=== PATIENT | male | born 1945 | race Caucasian/White ===

== ENCOUNTER 2016-05-21 11:12 | Inpatient (IN) | payer MEDICARE ==
[~2016-05-21] VITALS: Ht 185.4 cm; Wt 108.1 kg
[2016-05-21] MEDS ORDERED: ONDANSETRON PF 4 MG/2 ML VIAL. IV ONE (11:30)
[2016-05-21] MEDS ORDERED: ACETAMINOPHEN 500 MG TABLET PO ONE (11:30)
--- NOTE | 2016-05-21 11:48 | RAD ---
Indication: Fever and cough for 2 days. Technique: Upright portable chest radiograph was obtained and reviewed without comparison available. Findings: There is minimal atelectasis in the left lung base. The lungs otherwise are clear. Heart is not enlarged and the pulmonary vasculature is not cephalized, allowing for low lung volume. Bony structures are intact. Leads overlie the patient. Impression: Minimal atelectasis in the left lung base.
[2016-05-21 11:49] LABS: BASO % 0 % (0-3); EOS % 0 % (0-3); HEMATOCRIT 39.2 % (39.0-53.0); HEMOGLOBIN 13.5 g/dL (13.0-17.5); LYMPH # 0.5 x10^3/uL (1.0-4.8); LYMPH % 6 % (24-48); MEAN CORPUSCULAR HEMOGLOBIN 30 pg (25-35); MEAN CORPUSCULAR HGB CONC 35 g/dL (31-37); MEAN CORPUSCULAR VOLUME 86 fL (79-100); MONO % 5 % (0-9); NEUT % 89 % (31-73); PLATELET COUNT 143 x10^3/uL (140-400); RED BLOOD COUNT 4.55 x10^6/uL (4.30-5.70); RED CELL DISTRIBUTION WIDTH 13.9 % (11.5-14.5); WHITE BLOOD COUNT 9.9 x10^3/uL (4.0-11.0)
--- NOTE | 2016-05-21 11:56 | EKG ---
[facility] [address] [place] [address] Test Date: 2016-05-21 Test Time: 11:24:04 Pat Name: DEB CALIX Department: Room: Gender: M Mold Stamper: : 1945 Requested By: GT HAGAN Order Number: [id number] Reading MD: Delmy Abreu Measurements Intervals [place] Rate: 110 P: 42 NM: 150 QRS: -32 QRSD: 98 T: 28 QT: 316 QTc: 433 Interpretive Statements SINUS TACHYCARDIA ABNORMAL LEFT AXIS DEVIATION QRS(T) CONTOUR ABNORMALITY CONSIDER INFERIOR MYOCARDIAL DAMAGE RI6.01 Unconfirmed report No previous ECG available for comparison Electronically Signed On 05-21-2016 15:23:11 CDT by Delmy Abreu
[2016-05-21 12:01] LABS: CALCIUM 9.3 mg/dL (8.5-10.1); GFR 33.3; POTASSIUM 3.7 mmol/L (3.5-5.1)
[2016-05-21 12:07] LABS: ALBUMIN 3.1 g/dL (3.4-5.0); ALBUMIN/GLOBULIN RATIO 0.8 (1.0-1.7); TOTAL BILIRUBIN 2.5 mg/dL (0.2-1.0); TOTAL PROTEIN 7.2 g/dL (6.4-8.2)
[2016-05-21 12:14] LABS: OBC FLU VALID
[2016-05-21] MEDS ORDERED: IV NORMAL SALINE 1000ML BAG 1,000 ML IV ONE (12:15)
[2016-05-21] MEDS ORDERED: ASPIRIN 81 MG TAB.CHEW PO ONE (12:30)
[2016-05-21] MEDS ORDERED: CEFTRIAXONE 1GM IVPB FOR OMNI 50 ML IV ONE (12:30)
[2016-05-21 12:33] LABS: % BASOS 1 % (0-3)
[2016-05-21 12:34] LABS: PLT ESTIMATE ADEQUATE (ADEQUATE)
[2016-05-21] MEDS ORDERED: VANCOMYCIN 2 GM in IV NORMAL SALINE 500ML BAG 500 ML IV ONE (13:00)
--- NOTE | 2016-05-21 13:04 | PHYS DOC ---
Past Medical History Past Medical History: No Pertinent History Past Surgical History: No Surgical History Alcohol Use: None Drug Use: None Adult General Chief Complaint Chief Complaint: ALTERED MENTAL STATUS HPI HPI Patient is a 70 year old male who presents with general malaise. Patient reports for the past 2 days he has been feeling sick in general and weak; he has been unable to get out of bed. He reports fever and chills, nausea, head congestion. No discomfort, though than some back soreness that developed while riding in the ambulance. Specifically no chest discomfort, no shortness of breath either. He has not taken anything for symptoms. Per EMS, patient was lying in bed in his own stool on their arrival. Review of Systems Review of Systems Constitutional: Chills, subjective fever Eyes: Denies change in visual acuity or eye pain HENT: Head congestion Respiratory: Denies cough or shortness of breath Cardiovascular: Denies chest pain GI: Nausea. Denies abdominal pain, vomiting, bloody stools or diarrhea : Denies dysuria or hematuria Musculoskeletal: Back soreness after ambulance ride Integument: Denies rash or skin lesions Neurologic: Denies headache, focal weakness or sensory changes Current Medications Current Medications Current Medications Medications (Trade) Dose Ordered Sig/Massiel Start Time Stop Time Status Last Admin Dose Admin Acetaminophen (Tylenol) 1,000 mg 1X ONCE 05/21/16 11:30 05/21/16 11:33 DC 05/21/16 11:54 1,000 MG Aspirin (Children'S Aspirin) 324 mg 1X ONCE 05/21/16 12:30 05/21/16 12:31 DC 05/21/16 12:37 324 MG Ceftriaxone Sodium 50 ml @ 100 mls/hr 1X ONCE 05/21/16 12:30 05/21/16 12:59 DC 05/21/16 12:37 100 MLS/HR Ondansetron HCl (Zofran) 4 mg 1X ONCE 05/21/16 11:30 05/21/16 11:33 DC 05/21/16 11:52 4 MG Sodium Chloride (Iv Sodium Chloride 0.9% 1000ml Bag) 1,000 ml @ 125 mls/hr Q8H 05/21/16 13:04 05/22/16 13:03 05/21/16 15:15 125 MLS/HR Vancomycin HCl 1 each 1 each PRN DAILY PRN 05/21/16 12:30 05/21/16 15:02 1 EACH Vancomycin HCl 2 gm/Sodium Chloride 500 ml @ 250 mls/hr 1X ONCE 05/21/16 13:00 05/21/16 14:59 DC 05/21/16 13:12 250 MLS/HR Allergies Allergies Allergies Coded Allergies Type Severity Reaction Last Updated Verified No Known Drug Allergies 05/21/16 No Physical Exam Physical Exam Constitutional: Well developed, well nourished, no acute distress, non-toxic appearance HENT: Normocephalic, atraumatic, bilateral external ears normal Eyes: EOMI, conjunctiva normal, no discharge Neck: Normal range of motion, no stridor Cardiovascular: Tachycardic, regular rhythm, no murmur Lungs & Thorax: Bilateral breath sounds clear to auscultation Abdomen: Bowel sounds normal, soft, non-distended, no TTP Skin: Clammy, diaphoretic, no erythema, no rash Back: No tenderness, no skin lesion Extremities: No obvious deformity, no edema Neurologic: Alert and oriented X 3, strength and sensation to light touch intact throughout, no gross deficits noted Current Patient Data Vital Signs Vital Signs Date Time Temp Pulse Resp B/P Pulse Ox O2 Delivery O2 Flow Rate FiO2 05/21/16 12:47 102 23 108/60 97 Room Air 05/21/16 11:12 98.9 98.9 Lab Values Laboratory Tests Test 05/21/16 11:30 White Blood Count 9.9x10^3/uL (4.0-11.0) Red Blood Count 4.55x10^6/uL (4.30-5.70) Hemoglobin 13.5g/dL (13.0-17.5) Hematocrit 39.2% (39.0-53.0) Mean Corpuscular Volume 86fL (79-100) Mean Corpuscular Hemoglobin 30pg (25-35) Mean Corpuscular Hemoglobin Concent 35g/dL (31-37) Red Cell Distribution Width 13.9% (11.5-14.5) Platelet Count 143x10^3/uL (140-400) Neutrophils (%) (Auto) 89% (31-73) H Lymphocytes (%) (Auto) 6% (24-48) L Monocytes (%) (Auto) 5% (0-9) Eosinophils (%) (Auto) 0% (0-3) Basophils (%) (Auto) 0% (0-3) Neutrophils # (Auto) 8.8x10^3uL (1.8-7.7) H Lymphocytes # (Auto) 0.5x10^3/uL (1.0-4.8) L Monocytes # (Auto) 0.5x10^3/uL (0.0-1.1) Eosinophils # (Auto) 0.0x10^3/uL (0.0-0.7) Basophils # (Auto) 0.0x10^3/uL (0.0-0.2) Segmented Neutrophils % 80% (35-66) H Band Neutrophils % 12% (0-9) H Lymphocytes % 5% (24-48) L Monocytes % 2% (0-10) Basophils % 1% (0-3) Platelet Estimate Adequate (ADEQUATE) Sodium Level 141mmol/L (136-145) Potassium Level 3.7mmol/L (3.5-5.1) Chloride Level 103mmol/L (98-107) Carbon Dioxide Level 25mmol/L (21-32) Anion Gap 13 (6-14) Blood Urea Nitrogen 33mg/dL (8-26) H Creatinine 2.0mg/dL (0.7-1.3) H Estimated GFR (Cockcroft-Gault) 33.3 BUN/Creatinine Ratio 17 (6-20) Glucose Level 220mg/dL (70-99) H Lactic Acid Level 3.0mmol/L (0.4-2.0) H Calcium Level 9.3mg/dL (8.5-10.1) Total Bilirubin 2.5mg/dL (0.2-1.0) H Aspartate Amino Transferase (AST) 22U/L (15-37) Alanine Aminotransferase (ALT) 32U/L (16-63) Alkaline Phosphatase 61U/L (46-116) Creatine Kinase 122U/L (39-308) Troponin I Quantitative 0.170ng/mL (0.000-0.055) Total Protein 7.2g/dL (6.4-8.2) Albumin 3.1g/dL (3.4-5.0) L Albumin/Globulin Ratio 0.8 (1.0-1.7) L Lipase 80U/L (73-393) Influenza Type A Antigen Negative (NEGATIVE) Influenza Type B Antigen Negative (NEGATIVE) Laboratory Tests 05/21/16 11:30 Laboratory Tests 05/21/16 11:30 EKG EKG EKG (my read): sinus rhythm, rate 110, LAD, intervals wnl, no acute ST/T changes Radiology/Procedures Radiology/Procedures CXR: Impression: Minimal atelectasis in the left lung base. Course & Med Decision Making Course & Med Decision Making Pertinent Labs and Imaging studies reviewed. (See chart for details) Patient is 70-year-old male who presents with malaise, fever. Clammy on exam. Will check EKG, chest x-ray, labs, flu swab to evaluate. IV fluids, nausea medication, acetaminophen ordered for relief of symptoms. EKG and imaging results as above. Labs notable for creatinine 2.0 (no prior to compare), elevated lactic acid, elevated troponin. Dose of aspirin ordered. I discussed case with Dr. Jackson; as for troponin, we will trend this but will not anticoagulate at this time. Repeat lactic acid ordered for after IV fluids given. Discussed results with patient. Discussed with Dr. Odell, will admit under her care for further evaluation and treatment. Dragon Disclaimer Dragon Disclaimer This electronic medical record was generated, in whole or in part, using a voice recognition dictation system. Departure Departure Impression: Primary Impression: Malaise Additional Impressions: Elevated troponin Elevated lactic acid level Disposition: ADMITTED INPATIENT Admitting Physician: Other Condition: GUARDED Referrals: NADIA FITCH MD (PCP) Problem Qualifiers GT HAGAN MD May 21, 2016 13:04
[2016-05-21] MEDS ORDERED: MORPHINE SULFATE 2 MG/ML DISP.SYRIN. IV PRN (13:15)
[2016-05-21] MEDS ORDERED: ONDANSETRON PF 4 MG/2 ML VIAL. IV PRN (13:15)
--- NOTE | 2016-05-21 13:48 | ACF ---
Admission Forms Criteria MENTAL STATUS CHANGE Clinical Indications for Inpatient Care (Place 'X' for any and all applicable criteria): Ongoing inpatient care may be needed for ANY ONE of the following(1)(2)(3)(5)(6) : [X]I. Suspected serious etiology (eg, medical disorder, STEAMER BLOCKER event) of mental status change [ ]II. Danger to self or others not manageable at lower level of care [ ]III. Grave disability (eg, inability to perform self care necessary at lower level of care) [ ]IV. Agitation or inappropriate behavior interfering with care for primary condition (eg, attempting to discontinue lines or drains prematurely, unable to cooperate with respiratory care) [ ]V. Delirium [A] [D][E] as described by ANY ONE of the following(26): [ ]a) Delirium due to alcohol or sedative [F] withdrawal [ ]b) Delirium of uncertain etiology that has not responded to appropriate empiric treatment [ ]c) Delirium that prevents performance of a life-sustaining function (eg, feeding or hydrating oneself) [ ]. General contraindications and/or Inappropriate clinical situations for Observational Care in patients with Mental Status Change, when ANY ONE of the following is required: [ ]a) Prediction of prolongation of LOS based on ANY ONE of the following may be considered as a contraindication for observational care 2, 3, 4, 5, 6, 7, 8, 9, 10, 11 [ ]i) Age > 65 yrs. [ ]ii) Patient arriving by ambulance [ ]iii) Patient with high acuity [ ]iv) Patient requiring vital sign monitoring [ ]v) Patient on IV medication [ ]b) Systolic blood pressures 180mmHg 3,12 [ ]c) Patient with altered mental status including delirium and other alteration of consciousness, (3) [ ]d) Patient whose discharge disposition will be to a fpc home or rehabilitation home should not be managed in Emergency Department Observation Unit. CMS rule requires 3 days hospital stay before such placement.3,13 [ ]e) Patient with failure to thrive due to broad array of etiologies 3,16,17 [ ]f) Inability to ambulate 3,14 Extended stay beyond goal length of stay for the primary condition may be needed until ALL of the following are present(3)(5): [ ]a) Underlying medical etiology of mental status change is absent, or has been established and adequately treated [ ]b) Danger to self or others is absent or manageable at lower level of care. [ ]c) Behavior crisis management, including physical or chemical restraints, is not required or available at lower level of car [ ]d) Substance or alcohol withdrawal is absent or manageable at lower level of care. [ ]e) Behavioral symptoms (eg, agitation, somnolence, inappropriate behavior) are absent, or are manageable at lower level of care. The original [facility] content created by [facility] has been revised. The portions of the content which have been revised are identified through the use of italic text or in bold, and [facility] has neither reviewed nor approved the modified material. All other unmodified content is copyright [facility]. Please see references footnoted in the original [facility] edition 2016 Admission Criteria Met?: Yes CHRIS PINEDA May 21, 2016 13:48
[2016-05-21 14:35] VITALS: BP 111/65
[2016-05-21] MEDS: VANCOMYCIN PER PHARMACY MC PRN (15:02)
[2016-05-21] MEDS: IV NORMAL SALINE 1000ML BAG 1,000 ML IV SCH ×2 (15:15→21:04)
--- NOTE | 2016-05-21 16:21 | CONS ---
DATE OF CONSULTATION: 05/21/2016 REASON FOR CONSULTATION: Elevated troponin. HISTORY OF PRESENT ILLNESS: The patient is a 70-year-old gentleman without any significant past medical history who reports over the course of the last 4 weeks or so, he has had progressive fatigue and myalgias. Ultimately this lead up to severe weakness where he was not able to even get up out of bed and decided to call his son to take him to the hospital. Apparently when EMS arrived, he was in bed and had soiled himself. He reports that he does not remember anything after late Sunday night. The patient denies any chest pain, orthopnea or PND at baseline. 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 He denies any prior cardiovascular history. No prior syncopal events are known. In the ER, upon evaluation, he was noted to have an elevated troponin of 0.170 with an unremarkable EKG. He was admitted to the hospital for further evaluation of renal failure and elevated troponin in the setting of failure to thrive. PAST MEDICAL HISTORY: No known past medical history. PAST SURGICAL HISTORY: None. FAMILY HISTORY: Noncontributory. SOCIAL HISTORY: The patient denies any alcohol, tobacco or illicit drug use. 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 ALLERGIES: No known drug allergies. MEDICATIONS: No current cardiovascular medications. REVIEW OF SYSTEMS: Negative for 10 out of 14 systems reviewed, unless otherwise mentioned above in HPI. PHYSICAL EXAMINATION: VITAL SIGNS: Afebrile, heart rate 93, respiratory rate 16, blood pressure 111/65, pulse ox 96% on room air, he also had transient hypotension with a blood pressure of 80/50 while in the ER. GENERAL: He is alert and oriented, in no acute distress. He appears fatigued. HEAD AND NECK: Unremarkable. HEART: Regular rate and rhythm without any murmurs, rubs or gallops. LUNGS: Clear to auscultation. ABDOMEN: Soft, nontender, nondistended. EXTREMITIES: No clubbing, cyanosis or edema. MUSCULOSKELETAL: No trauma. NEUROLOGIC: No focal deficits. DIAGNOSTIC TESTIN. Chest x-ray is unremarkable. 2. EKG is unremarkable. 3. Troponin 0.170, hemoglobin 13.5, platelets 143, CK is 122, lactate 3.0. IMPRESSION: 1. Failure to thrive. 2. Elevated troponin, likely in the setting of hypotension and possible infectious syndrome, cannot rule out sepsis. 3. Possible seizure given the fact that he does not remember anything that happened from Sunday night and to early Sunday morning. RECOMMENDATIONS: 1. Continue serial enzymes, given the lack of any significant preceding chest pain or EKG changes, this does not appear to be related to cardiac issues. His troponin elevation likely related to his possible sepsis syndrome. 2. We will obtain an echocardiogram. Otherwise, supportive care and further recommendations, pending diagnostics. Thank you for this consultation. MARJORIE HDZ MD DR: MINERVA/celestine JOB#: [id number] / [id number] SHARONA
[2016-05-21 19:59] VITALS: BP 136/72
[2016-05-21] MEDS ORDERED: DEXTROSE 50% 25 GM / 50ML DISP.SYRIN. IV PRN (20:00)
[2016-05-21] MEDS: ACETAMINOPHEN 325 MG TABLET. PO PRN (20:25)
[2016-05-21] MEDS: POTASSIUM CHLORIDE 10 MEQ in IV 1/2 NORMAL SALINE 1,000 ML IV SCH (20:26)
--- NOTE | 2016-05-21 20:31 | HP ---
ADMIT DATE: 05/21/2016 CHIEF COMPLAINT: Generalized malaise, weakness. HISTORY OF PRESENT ILLNESS: The patient is a 70-year-old gentleman in excellent state of health, who presented to the Emergency Room after being found down by his son. His son relates that he found him lying incontinent of stool and urine next to his bed. Apparently, he was initially quite confused. Son helped him up and brought him into the Emergency Room. The patient does not recall any of these details. On further questioning however he relates that he had been feeling poorly over the past month or so. This was waxing and waning, had generalized malaise, fatigue, weakness. After a week, actually he went to his primary care physician thinking he had a sinus infection. He received antibiotics, but symptoms essentially remained. He denies any focal symptoms including chest pain, shortness of breath, palpitations, nausea, vomiting, diarrhea, or any other symptoms. He has never had any problems in the past, consider himself quite healthy. In the Emergency Room, he was found with a slightly elevated troponin at 0.17 as well as mild renal failure and was therefore admitted for further workup. PAST MEDICAL HISTORY: None. PAST SURGICAL HISTORY: None. FAMILY HISTORY: No heart disease, no diabetes, no high blood pressure. SOCIAL HISTORY: Lives by himself. 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 Smoked in his 20s. Denies any alcohol or drug use. ALLERGIES: No known drug allergies. MEDICATIONS: Essentially none. Takes vitamins over the counter. REVIEW OF SYSTEMS: Positive as per HPI. He also relates that he has been incontinent of urine for a couple of days without any dysuria or frequency. PHYSICAL EXAMINATION: VITAL SIGNS: From today show a blood pressure of 111/65, heart rate at 93, respiratory rate at 16. He is afebrile. GENERAL: This is an overweight, 70-year-old, gentleman. Alert and oriented, in no acute distress. HEENT: Shows no scleral icterus. Oral mucosa is pink and moist. NECK: Supple, without any lymphadenopathy. LUNGS: Clear to auscultation bilaterally. CARDIOVASCULAR: Regular rate and rhythm. ABDOMEN: Has positive bowel sounds. Soft, nontender. Organs were not palpable. EXTREMITIES: Show no edema. SKIN: Warm, soft and dry, without any rash. LABORATORY DATA: CBC from today shows a WBC of 9.9, hemoglobin 13.5, platelets of 143. Chemistries with a BUN and creatinine of 33 and 2. Electrolytes within normal limits. Glucose at 220. Total bili is 2.5. IMAGING: Chest x-ray in the Emergency Room shows minimal atelectasis in the left lung base. ASSESSMENT AND PLAN: The patient is a 70-year-old gentleman, who presents with generalized fatigue, weakness, urinary symptoms, and is found with mildly elevated troponin, elevated creatinine as well as glucose. Cardiology already has been consulted for troponin leak without any other signs or symptoms. Serial enzymes will be obtained. He does not carry a diagnosis of diabetes or renal failure. His creatinine is clearly elevated, but with normal electrolytes. This very well may be chronic rather than acute. We will monitor with gentle hydration. Diabetes mellitus is likewise a new diagnosis. We will start with insulin sliding scale. Anticipate need for longacting insulin as well. For his urinary symptoms, I will obtain a UA and culture. Infection versus BPH would be top on the differential diagnosis list. For prophylaxis, we will start him on heparin. Also received a PPI. JERRY BECKER MD DR: DANIELA/nts JOB#: [id number] / [id number] SHARONA
[2016-05-21 20:44] LABS: BILIRUBIN,URINE SMALL (NEG); GLUCOSE,URINE NEGATIVE (NEG); NITRITE,URINE NEGATIVE (NEG); PROTEIN,URINE 100 mg/dL (NEG-TRACE)
[2016-05-21 20:55] LABS: BACTERIA,URINE FEW /HPF (0-FEW); RBC,URINE RARE /HPF (0-2); SQUAMOUS EPITHELIAL CELL,UR FEW /LPF
[2016-05-21 22:09] VITALS: BP 104/61
[2016-05-22] MEDS: ACETAMINOPHEN 325 MG TABLET. PO PRN ×2 (00:44→20:14)
[2016-05-22 03:21] VITALS: BP 108/56
[2016-05-22 05:21] LABS: BASO % 0 % (0-3); EOS % 0 % (0-3); HEMATOCRIT 37.5 % (39.0-53.0); HEMOGLOBIN 12.7 g/dL (13.0-17.5); LYMPH # 0.4 x10^3/uL (1.0-4.8); LYMPH % 6 % (24-48); MEAN CORPUSCULAR HEMOGLOBIN 29 pg (25-35); MEAN CORPUSCULAR HGB CONC 34 g/dL (31-37); MEAN CORPUSCULAR VOLUME 87 fL (79-100); MONO % 5 % (0-9); NEUT % 88 % (31-73); PLATELET COUNT 117 x10^3/uL (140-400); RED BLOOD COUNT 4.32 x10^6/uL (4.30-5.70); RED CELL DISTRIBUTION WIDTH 14.1 % (11.5-14.5); WHITE BLOOD COUNT 6.4 x10^3/uL (4.0-11.0)
[2016-05-22 05:41] LABS: CALCIUM 8.2 mg/dL (8.5-10.1); CREATININE 1.8 mg/dL (0.7-1.3); GFR 37.6; POTASSIUM 4.2 mmol/L (3.5-5.1)
[2016-05-22 05:58] LABS: CHOLESTEROL/HDL RATIO 9.9
[2016-05-22 07:40] VITALS: BP 129/54
[2016-05-22] MEDS: INSULIN ASPART 300 UNITS/3 ML INSULN.PEN SQ SCH ×3 (08:00→16:50)
[2016-05-22] MEDS: VANCOMYCIN PER PHARMACY MC PRN (09:01)
[2016-05-22] MEDS ORDERED: ONDANSETRON PF 4 MG/2 ML VIAL. IV PRN (09:15)
[2016-05-22] MEDS: POTASSIUM CHLORIDE 10 MEQ in IV 1/2 NORMAL SALINE 1,000 ML IV SCH (09:24)
--- NOTE | 2016-05-22 10:19 | RAD ---
CT of the head without contrast, 05/22/2016: History: Fever, headache There is mild cerebral atrophy. The ventricles are within normal limits in size. There is no shift of the midline structures. There is no evidence of acute intracranial hemorrhage or mass effect. IMPRESSION: 1. Mild cerebral atrophy. 2. The CT of the head without contrast is otherwise unremarkable. CT of the paranasal sinuses without contrast, 05/22/2016: Noncontrast scans were obtained with multiplanar reconstructions produced. There is mild mucosal thickening in all of the paranasal sinuses. No free fluid is evident in the sinuses. The ethmoid infundibulum of the ostiomeatal complex on the right is patent. On the left it appears to be narrowed by the mucosal thickening. There is mild deviation of the nasal septum to the left of midline. The visible contents are unremarkable. IMPRESSION: Mild paranasal sinus mucosal thickening without evidence of acute purulent sinusitis. PQRS Compliance Statement: One or more of the following individualized dose reduction techniques were utilized for this examination: 1. Automated exposure control 2. Adjustment of the mA and/or kV according to patient size 3. Use of iterative reconstruction technique
[2016-05-22] MEDS: PIPERACILLIN/TAZOBACTAM 3.375 GM in IV NORMAL SALINE 50ML 50 ML IV SCH ×2 (10:21→17:55)
[2016-05-22] MEDS: PANTOPRAZOLE 40 MG TABLET. PO SCH (10:21)
[2016-05-22 10:47] VITALS: BP 106/49
--- NOTE | 2016-05-22 10:57 | PDOC ---
Infectious Disease Note Vital Sign Vital Signs Vital Signs Date Time Temp Pulse Resp B/P Pulse Ox O2 Delivery O2 Flow Rate FiO2 05/22/16 10:47 98.5 84 18 106/49 97 Room Air 98.5 Labs Lab Laboratory Tests Test 05/21/16 11:30 05/21/16 14:10 05/21/16 17:00 05/21/16 20:31 White Blood Count 9.9x10^3/uL (4.0-11.0) Red Blood Count 4.55x10^6/uL (4.30-5.70) Hemoglobin 13.5g/dL (13.0-17.5) Hematocrit 39.2% (39.0-53.0) Mean Corpuscular Volume 86fL (79-100) Mean Corpuscular Hemoglobin 30pg (25-35) Mean Corpuscular Hemoglobin Concent 35g/dL (31-37) Red Cell Distribution Width 13.9% (11.5-14.5) Platelet Count 143x10^3/uL (140-400) Neutrophils (%) (Auto) 89% (31-73) Lymphocytes (%) (Auto) 6% (24-48) Monocytes (%) (Auto) 5% (0-9) Eosinophils (%) (Auto) 0% (0-3) Basophils (%) (Auto) 0% (0-3) Neutrophils # (Auto) 8.8x10^3uL (1.8-7.7) Lymphocytes # (Auto) 0.5x10^3/uL (1.0-4.8) Monocytes # (Auto) 0.5x10^3/uL (0.0-1.1) Eosinophils # (Auto) 0.0x10^3/uL (0.0-0.7) Basophils # (Auto) 0.0x10^3/uL (0.0-0.2) Segmented Neutrophils % 80% (35-66) Band Neutrophils % 12% (0-9) Lymphocytes % 5% (24-48) Monocytes % 2% (0-10) Basophils % 1% (0-3) Platelet Estimate Adequate (ADEQUATE) Sodium Level 141mmol/L (136-145) Potassium Level 3.7mmol/L (3.5-5.1) Chloride Level 103mmol/L (98-107) Carbon Dioxide Level 25mmol/L (21-32) Anion Gap 13 (6-14) Blood Urea Nitrogen 33mg/dL (8-26) Creatinine 2.0mg/dL (0.7-1.3) Estimated GFR (Cockcroft-Gault) 33.3 BUN/Creatinine Ratio 17 (6-20) Glucose Level 220mg/dL (70-99) Lactic Acid Level 3.0mmol/L (0.4-2.0) 1.4mmol/L (0.4-2.0) 1.5mmol/L (0.4-2.0) Calcium Level 9.3mg/dL (8.5-10.1) Total Bilirubin 2.5mg/dL (0.2-1.0) Aspartate Amino Transf (AST/SGOT) 22U/L (15-37) Alanine Aminotransferase (ALT/SGPT) 32U/L (16-63) Alkaline Phosphatase 61U/L (46-116) Creatine Kinase 122U/L (39-308) Troponin I Quantitative 0.170ng/mL (0.000-0.055) 0.418ng/mL (0.000-0.055) Total Protein 7.2g/dL (6.4-8.2) Albumin 3.1g/dL (3.4-5.0) Albumin/Globulin Ratio 0.8 (1.0-1.7) Lipase 80U/L (73-393) Influenza Type A Antigen Negative (NEGATIVE) Influenza Type B Antigen Negative (NEGATIVE) Urine Collection Type Unknown Urine Color [place] Urine Clarity Cloudy Urine pH 5.0 Urine Specific [facility] 1.025 Urine Protein 100mg/dL (NEG-TRACE) Urine Glucose (UA) Negativemg/dL (NEG) Urine Ketones (Stick) Negativemg/dL (NEG) Urine Blood Large (NEG) Urine Nitrite Negative (NEG) Urine Bilirubin Small (NEG) Urine Urobilinogen Dipstick 1.0mg/dL (0.2 mg/dL) Urine Leukocyte Esterase Small (NEG) Urine RBC Rare/HPF (0-2) Urine WBC 5-10/HPF (0-4) Urine Squamous Epithelial Cells Few/LPF Urine Bacteria Few/HPF (0-FEW) Urine Hyaline Casts Occasional/HPF Urine Mucus Marked/LPF Test 05/21/16 20:34 05/21/16 22:55 05/22/16 04:44 05/22/16 07:55 Glucose (Fingerstick) 129mg/dL (70-99) 151mg/dL (70-99) Troponin I Quantitative 0.542ng/mL (0.000-0.055) White Blood Count 6.4x10^3/uL (4.0-11.0) Red Blood Count 4.32x10^6/uL (4.30-5.70) Hemoglobin 12.7g/dL (13.0-17.5) Hematocrit 37.5% (39.0-53.0) Mean Corpuscular Volume 87fL (79-100) Mean Corpuscular Hemoglobin 29pg (25-35) Mean Corpuscular Hemoglobin Concent 34g/dL (31-37) Red Cell Distribution Width 14.1% (11.5-14.5) Platelet Count 117x10^3/uL (140-400) Neutrophils (%) (Auto) 88% (31-73) Lymphocytes (%) (Auto) 6% (24-48) Monocytes (%) (Auto) 5% (0-9) Eosinophils (%) (Auto) 0% (0-3) Basophils (%) (Auto) 0% (0-3) Neutrophils # (Auto) 5.6x10^3uL (1.8-7.7) Lymphocytes # (Auto) 0.4x10^3/uL (1.0-4.8) Monocytes # (Auto) 0.3x10^3/uL (0.0-1.1) Eosinophils # (Auto) 0.0x10^3/uL (0.0-0.7) Basophils # (Auto) 0.0x10^3/uL (0.0-0.2) Sodium Level 141mmol/L (136-145) Potassium Level 4.2mmol/L (3.5-5.1) Chloride Level 106mmol/L (98-107) Carbon Dioxide Level 25mmol/L (21-32) Anion Gap 10 (6-14) Blood Urea Nitrogen 37mg/dL (8-26) Creatinine 1.8mg/dL (0.7-1.3) Estimated GFR (Cockcroft-Gault) 37.6 Glucose Level 157mg/dL (70-99) Calcium Level 8.2mg/dL (8.5-10.1) Triglycerides Level 150mg/dL (0-150) Cholesterol Level 89mg/dL (0-200) LDL Cholesterol, Calculated 50mg/dL (0-100) VLDL Cholesterol, Calculated 30mg/dL (0-40) HDL Cholesterol 9mg/dL (40-60) Cholesterol/HDL Ratio 9.9 Thyroid Stimulating Hormone (TSH) 0.810uIU/mL (0.358-3.74) Objective Assessment G neg obdulia sepsis Weakness Encephalopathy ARF Troponin leak Plan Plan of Care need ct abd zosyn d/c vanc check culture and adjust CHUN CRUZ MD May 22, 2016 10:57
[2016-05-22] MEDS ORDERED: CEFTRIAXONE SODIUM 1 GM in IV NORMAL SALINE 50ML 50 ML IV SCH (11:00)
[2016-05-22] MEDS ORDERED: CONTRAST GIVEN MC PRN (11:45)
[2016-05-22] MEDS ORDERED: IOHEXOL 240 MG/ML 50ML VIAL. PO ONE (11:45)
--- NOTE | 2016-05-22 11:48 | PDOC ---
MARIAA SMALLS GREETING CARD EDITOR 05/22/16 1148: CARDIO Progress Notes Date and Time Date of Service 05/22/2016 Time of Evaluation 1142 Subjective Subjective: No Chest Pain, No shortness of breath, No Palpitations, No Dizziness Vitals Vitals Vital Signs Date Time Temp Pulse Resp B/P Pulse Ox O2 Delivery O2 Flow Rate FiO2 05/22/16 10:47 98.5 84 18 106/49 97 Room Air 98.5 Weight Weight [ ] Input and Output Intake and Output Intake and Output 05/22/16 07:00 Intake Total 2050 ml Output Total 250 ml Balance 1800 ml Intake Oral 1000 ml IV Total 1050 ml Output Urine Total 250 ml # Voids 2 # Bowel Movements 1 Laboratory Labs Laboratory Tests Test 05/21/16 14:10 05/21/16 17:00 05/21/16 20:31 05/21/16 20:34 Lactic Acid Level 1.4mmol/L (0.4-2.0) 1.5mmol/L (0.4-2.0) Troponin I Quantitative 0.418ng/mL (0.000-0.055) Urine Collection Type Unknown Urine Color Velpen Urine Clarity Cloudy Urine pH 5.0 Urine Specific [place] 1.025 Urine Protein 100mg/dL (NEG-TRACE) Urine Glucose (UA) Negativemg/dL (NEG) Urine Ketones (Stick) Negativemg/dL (NEG) Urine Blood Large (NEG) Urine Nitrite Negative (NEG) Urine Bilirubin Small (NEG) Urine Urobilinogen Dipstick 1.0mg/dL (0.2 mg/dL) Urine Leukocyte Esterase Small (NEG) Urine RBC Rare/HPF (0-2) Urine WBC 5-10/HPF (0-4) Urine Squamous Epithelial Cells Few/LPF Urine Bacteria Few/HPF (0-FEW) Urine Hyaline Casts Occasional/HPF Urine Mucus Marked/LPF Glucose (Fingerstick) 129mg/dL (70-99) Test 05/21/16 22:55 05/22/16 04:44 05/22/16 07:55 05/22/16 11:14 Troponin I Quantitative 0.542ng/mL (0.000-0.055) White Blood Count 6.4x10^3/uL (4.0-11.0) Red Blood Count 4.32x10^6/uL (4.30-5.70) Hemoglobin 12.7g/dL (13.0-17.5) Hematocrit 37.5% (39.0-53.0) Mean Corpuscular Volume 87fL (79-100) Mean Corpuscular Hemoglobin 29pg (25-35) Mean Corpuscular Hemoglobin Concent 34g/dL (31-37) Red Cell Distribution Width 14.1% (11.5-14.5) Platelet Count 117x10^3/uL (140-400) Neutrophils (%) (Auto) 88% (31-73) Lymphocytes (%) (Auto) 6% (24-48) Monocytes (%) (Auto) 5% (0-9) Eosinophils (%) (Auto) 0% (0-3) Basophils (%) (Auto) 0% (0-3) Neutrophils # (Auto) 5.6x10^3uL (1.8-7.7) Lymphocytes # (Auto) 0.4x10^3/uL (1.0-4.8) Monocytes # (Auto) 0.3x10^3/uL (0.0-1.1) Eosinophils # (Auto) 0.0x10^3/uL (0.0-0.7) Basophils # (Auto) 0.0x10^3/uL (0.0-0.2) Sodium Level 141mmol/L (136-145) Potassium Level 4.2mmol/L (3.5-5.1) Chloride Level 106mmol/L (98-107) Carbon Dioxide Level 25mmol/L (21-32) Anion Gap 10 (6-14) Blood Urea Nitrogen 37mg/dL (8-26) Creatinine 1.8mg/dL (0.7-1.3) Estimated GFR (Cockcroft-Gault) 37.6 Glucose Level 157mg/dL (70-99) Calcium Level 8.2mg/dL (8.5-10.1) Triglycerides Level 150mg/dL (0-150) Cholesterol Level 89mg/dL (0-200) LDL Cholesterol, Calculated 50mg/dL (0-100) VLDL Cholesterol, Calculated 30mg/dL (0-40) HDL Cholesterol 9mg/dL (40-60) Cholesterol/HDL Ratio 9.9 Thyroid Stimulating Hormone (TSH) 0.810uIU/mL (0.358-3.74) Glucose (Fingerstick) 151mg/dL (70-99) 182mg/dL (70-99) Microbiology Micro Microbiology 05/21/16 Blood Culture - Final, Complete Physical Exam HEENT: Neck Supple W Full Motion Chest: Symmetric LUNGS: Clear to Auscultation Heart: S1S2, RRR, no murmurs, no jug vein distention, other (tele: SR; no dysrhythmias on tele) Extremities: No Edema Neurology: alert, oriented, follow commands Assessment Assessment 1. septic 2/ BC + - GNR febrile this a.m. per ID 2. Elevated troponin likely due to #1 echo pending 3. Possible seizure given the fact that he does not remember anything that happened from Sunday night and to early Sunday morning. no cardiac dysrhythmias on tele denies symptoms 4. low HDLs HDLs = 9 MARJORIE HDZ MD 05/22/16 2213: CARDIO Progress Notes Plan Plan Pt. seen and examined. Agree with above. GNR in blood cultures. No cardiac symptoms. Echo wnl. Supportive care from cardiac perspective Pls call with questions. MARIAA SMALLS APRN May 22, 2016 11:48 MARJORIE HDZ MD May 22, 2016 22:13
[2016-05-22] MEDS ORDERED: VANCOMYCIN 1.5 GM in IV NORMAL SALINE 500ML BAG 500 ML IV SCH (13:00)
--- NOTE | 2016-05-22 13:02 | CARD ---
APPROVED REPORT EXAM: Two-dimensional and M-mode echocardiogram with Doppler and color Doppler. Other Information Quality : Good INDICATION Non STEMI 2D DIMENSIONS RVDd2.6 (2.9-3.5cm)Left Atrium(2D)3.8 (1.6-4.0cm) IVSd1.4 (0.7-1.1cm)Aortic Root(2D)3.1 (2.0-3.7cm) LVDd4.5 (3.9-5.9cm)LVOT Diameter2.2 (1.8-2.4cm) PWd1.4 (0.7-1.1cm)LVDs2.9 (2.5-4.0cm) FS (%) 34.8 %SV58.8 ml Aortic Valve AoV Peak Tal.130.1cm/sAoV VTI20.7cm AO Peak GR.6.8mmHgLVOT VTI 18.36cm AO Mean GR.4mmHgAVA (VTI)3.30cm2 Mitral Valve MV E Zmnzbycq66.0cm/sMV DECEL OHZE554oa MV A Bfasbtxe11.8cm/sE/A Ratio0.9 TDI Lateral E' P. V5.60cm/sMedial E' P. V8.75cm/s E/Lateral E'13.6E/Medial E'8.7 Tricuspid Valve TR P. Jqzqqmvz978gy/sRAP KYXJOJGU2fvMu TR Peak Gr.76ybRfFLBM58hpGp Pulmonary Vein S1 Iqfqlaee93.4cm/sS2 Iwzvuxcd30.48cm/s D2 Tdapjode43.5cm/s LEFT VENTRICLE The left ventricle is normal size. There is mild concentric left ventricular hypertrophy. The left ve ntricular systolic function is normal and the ejection fraction is within normal range. The Ejection Fraction is 55-60%. There is normal LV segmental wall motion. Transmitral Doppler flow pattern is Gra de I-abnormal relaxation pattern. RIGHT VENTRICLE The right ventricle is normal size. The right ventricular systolic function is normal. ATRIA The left atrium size is normal. The right atrium size is normal. The interatrial septum is intact wit h no evidence for an atrial septal defect or patent foramen ovale as noted on 2-D or Doppler imaging. AORTIC VALVE The aortic valve is calcified but opens well. Doppler and Color Flow revealed no significant aortic r egurgitation. There is no significant aortic valvular stenosis. MITRAL VALVE The mitral valve is normal in structure and function. There is no evidence of mitral valve prolapse. There is no mitral valve stenosis. Doppler and Color Flow revealed no mitral valve regurgitation note d. TRICUSPID VALVE The tricuspid valve is normal in structure and function. Doppler and Color Flow revealed trace tricus pid regurgitation. The PA pressure was estimated at 28 mmHg. There is no tricuspid valve stenosis. PULMONIC VALVE The pulmonary valve is normal in structure and function. Doppler and Color Flow revealed no pulmonic valvular regurgitation. There is no pulmonic valvular stenosis. GREAT VESSELS The aortic root is normal in size. The ascending aorta is mildly dilated at 3.8 cm. The IVC is normal in size and collapses >50% with inspiration. PERICARDIAL EFFUSION There is no evidence of significant pericardial effusion. Critical Notification Critical Value: No <Conclusion> The left ventricle is normal size. The left ventricular systolic function is normal and the ejection fraction is within normal range. The Ejection Fraction is 55-60%. There is mild concentric left ventricular hypertrophy. There is no significant aortic valvular stenosis. Doppler and Color Flow revealed no significant aortic regurgitation. Doppler and Color Flow revealed no mitral valve regurgitation noted. Doppler and Color Flow revealed trace tricuspid regurgitation. The PA pressure was estimated at 28 mmHg. The ascending aorta is mildly dilated at 3.8 cm.
--- NOTE | 2016-05-22 13:43 | PDOC ---
PROGRESS NOTES Chief Complaint Chief Complaint G neg obdulia bacteremia sepsis generalized Weakness metabolic Encephalopathy 2/2 sepsis ARF. vasomotor Troponin leak 2/2 sepsis likely plan: 1. fu with card 2. get ID consult, on zosyn now, fu ucx, bcx 3. abd CT 4. head/facial CT given h/o chronic sinusitis 5. dvt, gi ppx ptot ivf 1/2 ns INCRease to 100cc/h labs tmr History of Present Illness History of Present Illness hard hearing weak mild confused denies cough, + urine incontinence, denies abd pain, or dysuria, + fever Vitals Vitals Vital Signs Date Time Temp Pulse Resp B/P Pulse Ox O2 Delivery O2 Flow Rate FiO2 05/22/16 10:47 98.5 84 18 106/49 97 Room Air 98.5 Physical Exam General: Alert, Oriented X3, Cooperative Heart: Regular rate, Normal S1, Normal S2 Lungs: Clear Abdomen: Normal bowel sounds, Soft Extremities: No clubbing, No cyanosis Labs LABS Laboratory Tests Test 05/21/16 14:10 05/21/16 17:00 05/21/16 20:31 05/21/16 20:34 Lactic Acid Level 1.4mmol/L (0.4-2.0) 1.5mmol/L (0.4-2.0) Troponin I Quantitative 0.418ng/mL (0.000-0.055) Urine Collection Type Unknown Urine Color [place] Urine Clarity Cloudy Urine pH 5.0 Urine Specific [place] 1.025 Urine Protein 100mg/dL (NEG-TRACE) Urine Glucose (UA) Negativemg/dL (NEG) Urine Ketones (Stick) Negativemg/dL (NEG) Urine Blood Large (NEG) Urine Nitrite Negative (NEG) Urine Bilirubin Small (NEG) Urine Urobilinogen Dipstick 1.0mg/dL (0.2 mg/dL) Urine Leukocyte Esterase Small (NEG) Urine RBC Rare/HPF (0-2) Urine WBC 5-10/HPF (0-4) Urine Squamous Epithelial Cells Few/LPF Urine Bacteria Few/HPF (0-FEW) Urine Hyaline Casts Occasional/HPF Urine Mucus Marked/LPF Glucose (Fingerstick) 129mg/dL (70-99) Test 05/21/16 22:55 05/22/16 04:44 05/22/16 07:55 05/22/16 11:14 Troponin I Quantitative 0.542ng/mL (0.000-0.055) White Blood Count 6.4x10^3/uL (4.0-11.0) Red Blood Count 4.32x10^6/uL (4.30-5.70) Hemoglobin 12.7g/dL (13.0-17.5) Hematocrit 37.5% (39.0-53.0) Mean Corpuscular Volume 87fL (79-100) Mean Corpuscular Hemoglobin 29pg (25-35) Mean Corpuscular Hemoglobin Concent 34g/dL (31-37) Red Cell Distribution Width 14.1% (11.5-14.5) Platelet Count 117x10^3/uL (140-400) Neutrophils (%) (Auto) 88% (31-73) Lymphocytes (%) (Auto) 6% (24-48) Monocytes (%) (Auto) 5% (0-9) Eosinophils (%) (Auto) 0% (0-3) Basophils (%) (Auto) 0% (0-3) Neutrophils # (Auto) 5.6x10^3uL (1.8-7.7) Lymphocytes # (Auto) 0.4x10^3/uL (1.0-4.8) Monocytes # (Auto) 0.3x10^3/uL (0.0-1.1) Eosinophils # (Auto) 0.0x10^3/uL (0.0-0.7) Basophils # (Auto) 0.0x10^3/uL (0.0-0.2) Sodium Level 141mmol/L (136-145) Potassium Level 4.2mmol/L (3.5-5.1) Chloride Level 106mmol/L (98-107) Carbon Dioxide Level 25mmol/L (21-32) Anion Gap 10 (6-14) Blood Urea Nitrogen 37mg/dL (8-26) Creatinine 1.8mg/dL (0.7-1.3) Estimated GFR (Cockcroft-Gault) 37.6 Glucose Level 157mg/dL (70-99) Calcium Level 8.2mg/dL (8.5-10.1) Triglycerides Level 150mg/dL (0-150) Cholesterol Level 89mg/dL (0-200) LDL Cholesterol, Calculated 50mg/dL (0-100) VLDL Cholesterol, Calculated 30mg/dL (0-40) HDL Cholesterol 9mg/dL (40-60) Cholesterol/HDL Ratio 9.9 Thyroid Stimulating Hormone (TSH) 0.810uIU/mL (0.358-3.74) Glucose (Fingerstick) 151mg/dL (70-99) 182mg/dL (70-99) Review of Systems Review of Systems no chills, chest pain sob. Assessment and Plan Assessmemt and Plan Problems Medical Problems: (1) Elevated lactic acid level Status: Acute (2) Elevated troponin Status: Acute (3) Malaise Status: Acute Problems: Comment Review of Relevant I have reviewed the following items william (where applicable) has been applied. Labs Laboratory Tests Test 05/21/16 11:30 05/21/16 14:10 05/21/16 17:00 05/21/16 20:31 White Blood Count 9.9x10^3/uL (4.0-11.0) Red Blood Count 4.55x10^6/uL (4.30-5.70) Hemoglobin 13.5g/dL (13.0-17.5) Hematocrit 39.2% (39.0-53.0) Mean Corpuscular Volume 86fL (79-100) Mean Corpuscular Hemoglobin 30pg (25-35) Mean Corpuscular Hemoglobin Concent 35g/dL (31-37) Red Cell Distribution Width 13.9% (11.5-14.5) Platelet Count 143x10^3/uL (140-400) Neutrophils (%) (Auto) 89% (31-73) Lymphocytes (%) (Auto) 6% (24-48) Monocytes (%) (Auto) 5% (0-9) Eosinophils (%) (Auto) 0% (0-3) Basophils (%) (Auto) 0% (0-3) Neutrophils # (Auto) 8.8x10^3uL (1.8-7.7) Lymphocytes # (Auto) 0.5x10^3/uL (1.0-4.8) Monocytes # (Auto) 0.5x10^3/uL (0.0-1.1) Eosinophils # (Auto) 0.0x10^3/uL (0.0-0.7) Basophils # (Auto) 0.0x10^3/uL (0.0-0.2) Segmented Neutrophils % 80% (35-66) Band Neutrophils % 12% (0-9) Lymphocytes % 5% (24-48) Monocytes % 2% (0-10) Basophils % 1% (0-3) Platelet Estimate Adequate (ADEQUATE) Sodium Level 141mmol/L (136-145) Potassium Level 3.7mmol/L (3.5-5.1) Chloride Level 103mmol/L (98-107) Carbon Dioxide Level 25mmol/L (21-32) Anion Gap 13 (6-14) Blood Urea Nitrogen 33mg/dL (8-26) Creatinine 2.0mg/dL (0.7-1.3) Estimated GFR (Cockcroft-Gault) 33.3 BUN/Creatinine Ratio 17 (6-20) Glucose Level 220mg/dL (70-99) Lactic Acid Level 3.0mmol/L (0.4-2.0) 1.4mmol/L (0.4-2.0) 1.5mmol/L (0.4-2.0) Calcium Level 9.3mg/dL (8.5-10.1) Total Bilirubin 2.5mg/dL (0.2-1.0) Aspartate Amino Transf (AST/SGOT) 22U/L (15-37) Alanine Aminotransferase (ALT/SGPT) 32U/L (16-63) Alkaline Phosphatase 61U/L (46-116) Creatine Kinase 122U/L (39-308) Troponin I Quantitative 0.170ng/mL (0.000-0.055) 0.418ng/mL (0.000-0.055) Total Protein 7.2g/dL (6.4-8.2) Albumin 3.1g/dL (3.4-5.0) Albumin/Globulin Ratio 0.8 (1.0-1.7) Lipase 80U/L (73-393) Influenza Type A Antigen Negative (NEGATIVE) Influenza Type B Antigen Negative (NEGATIVE) Urine Collection Type Unknown Urine Color [place] Urine Clarity Cloudy Urine pH 5.0 Urine Specific [place] 1.025 Urine Protein 100mg/dL (NEG-TRACE) Urine Glucose (UA) Negativemg/dL (NEG) Urine Ketones (Stick) Negativemg/dL (NEG) Urine Blood Large (NEG) Urine Nitrite Negative (NEG) Urine Bilirubin Small (NEG) Urine Urobilinogen Dipstick 1.0mg/dL (0.2 mg/dL) Urine Leukocyte Esterase Small (NEG) Urine RBC Rare/HPF (0-2) Urine WBC 5-10/HPF (0-4) Urine Squamous Epithelial Cells Few/LPF Urine Bacteria Few/HPF (0-FEW) Urine Hyaline Casts Occasional/HPF Urine Mucus Marked/LPF Test 05/21/16 20:34 05/21/16 22:55 05/22/16 04:44 05/22/16 07:55 Glucose (Fingerstick) 129mg/dL (70-99) 151mg/dL (70-99) Troponin I Quantitative 0.542ng/mL (0.000-0.055) White Blood Count 6.4x10^3/uL (4.0-11.0) Red Blood Count 4.32x10^6/uL (4.30-5.70) Hemoglobin 12.7g/dL (13.0-17.5) Hematocrit 37.5% (39.0-53.0) Mean Corpuscular Volume 87fL (79-100) Mean Corpuscular Hemoglobin 29pg (25-35) Mean Corpuscular Hemoglobin Concent 34g/dL (31-37) Red Cell Distribution Width 14.1% (11.5-14.5) Platelet Count 117x10^3/uL (140-400) Neutrophils (%) (Auto) 88% (31-73) Lymphocytes (%) (Auto) 6% (24-48) Monocytes (%) (Auto) 5% (0-9) Eosinophils (%) (Auto) 0% (0-3) Basophils (%) (Auto) 0% (0-3) Neutrophils # (Auto) 5.6x10^3uL (1.8-7.7) Lymphocytes # (Auto) 0.4x10^3/uL (1.0-4.8) Monocytes # (Auto) 0.3x10^3/uL (0.0-1.1) Eosinophils # (Auto) 0.0x10^3/uL (0.0-0.7) Basophils # (Auto) 0.0x10^3/uL (0.0-0.2) Sodium Level 141mmol/L (136-145) Potassium Level 4.2mmol/L (3.5-5.1) Chloride Level 106mmol/L (98-107) Carbon Dioxide Level 25mmol/L (21-32) Anion Gap 10 (6-14) Blood Urea Nitrogen 37mg/dL (8-26) Creatinine 1.8mg/dL (0.7-1.3) Estimated GFR (Cockcroft-Gault) 37.6 Glucose Level 157mg/dL (70-99) Calcium Level 8.2mg/dL (8.5-10.1) Triglycerides Level 150mg/dL (0-150) Cholesterol Level 89mg/dL (0-200) LDL Cholesterol, Calculated 50mg/dL (0-100) VLDL Cholesterol, Calculated 30mg/dL (0-40) HDL Cholesterol 9mg/dL (40-60) Cholesterol/HDL Ratio 9.9 Thyroid Stimulating Hormone (TSH) 0.810uIU/mL (0.358-3.74) Test 05/22/16 11:14 Glucose (Fingerstick) 182mg/dL (70-99) Laboratory Tests Test 05/21/16 14:10 05/21/16 17:00 05/21/16 20:31 05/21/16 20:34 Lactic Acid Level 1.4mmol/L (0.4-2.0) 1.5mmol/L (0.4-2.0) Troponin I Quantitative 0.418ng/mL (0.000-0.055) Urine Collection Type Unknown Urine Color [place] Urine Clarity Cloudy Urine pH 5.0 Urine Specific [place] 1.025 Urine Protein 100mg/dL (NEG-TRACE) Urine Glucose (UA) Negativemg/dL (NEG) Urine Ketones (Stick) Negativemg/dL (NEG) Urine Blood Large (NEG) Urine Nitrite Negative (NEG) Urine Bilirubin Small (NEG) Urine Urobilinogen Dipstick 1.0mg/dL (0.2 mg/dL) Urine Leukocyte Esterase Small (NEG) Urine RBC Rare/HPF (0-2) Urine WBC 5-10/HPF (0-4) Urine Squamous Epithelial Cells Few/LPF Urine Bacteria Few/HPF (0-FEW) Urine Hyaline Casts Occasional/HPF Urine Mucus Marked/LPF Glucose (Fingerstick) 129mg/dL (70-99) Test 05/21/16 22:55 05/22/16 04:44 05/22/16 07:55 05/22/16 11:14 Troponin I Quantitative 0.542ng/mL (0.000-0.055) White Blood Count 6.4x10^3/uL (4.0-11.0) Red Blood Count 4.32x10^6/uL (4.30-5.70) Hemoglobin 12.7g/dL (13.0-17.5) Hematocrit 37.5% (39.0-53.0) Mean Corpuscular Volume 87fL (79-100) Mean Corpuscular Hemoglobin 29pg (25-35) Mean Corpuscular Hemoglobin Concent 34g/dL (31-37) Red Cell Distribution Width 14.1% (11.5-14.5) Platelet Count 117x10^3/uL (140-400) Neutrophils (%) (Auto) 88% (31-73) Lymphocytes (%) (Auto) 6% (24-48) Monocytes (%) (Auto) 5% (0-9) Eosinophils (%) (Auto) 0% (0-3) Basophils (%) (Auto) 0% (0-3) Neutrophils # (Auto) 5.6x10^3uL (1.8-7.7) Lymphocytes # (Auto) 0.4x10^3/uL (1.0-4.8) Monocytes # (Auto) 0.3x10^3/uL (0.0-1.1) Eosinophils # (Auto) 0.0x10^3/uL (0.0-0.7) Basophils # (Auto) 0.0x10^3/uL (0.0-0.2) Sodium Level 141mmol/L (136-145) Potassium Level 4.2mmol/L (3.5-5.1) Chloride Level 106mmol/L (98-107) Carbon Dioxide Level 25mmol/L (21-32) Anion Gap 10 (6-14) Blood Urea Nitrogen 37mg/dL (8-26) Creatinine 1.8mg/dL (0.7-1.3) Estimated GFR (Cockcroft-Gault) 37.6 Glucose Level 157mg/dL (70-99) Calcium Level 8.2mg/dL (8.5-10.1) Triglycerides Level 150mg/dL (0-150) Cholesterol Level 89mg/dL (0-200) LDL Cholesterol, Calculated 50mg/dL (0-100) VLDL Cholesterol, Calculated 30mg/dL (0-40) HDL Cholesterol 9mg/dL (40-60) Cholesterol/HDL Ratio 9.9 Thyroid Stimulating Hormone (TSH) 0.810uIU/mL (0.358-3.74) Glucose (Fingerstick) 151mg/dL (70-99) 182mg/dL (70-99) Microbiology 05/21/16 Blood Culture - Final, Complete Medications Current Medications Ondansetron HCl (Zofran) 4 mg 1X ONCE IV Last administered on 05/21/16 11:52 ; Start 05/21/16 at 11:30; Stop 05/21/16 at 11:33; Status DC Acetaminophen 1000 mg 1,000 mg 1X ONCE PO Last administered on 05/21/16 11:54 ; Start 05/21/16 at 11:30; Stop 05/21/16 at 11:33; Status DC Sodium Chloride (Iv Sodium Chloride 0.9% 1000ml Bag) 1,000 ml @ 1,000 mls/hr 1X ONCE IV Last administered on 05/21/16 12:38; Start 05/21/16 at 12:15; Stop 05/21/16 at 13:14; Status DC Aspirin (Children'S Aspirin) 324 mg 1X ONCE PO Last administered on 05/21/16 12:37; Start 05/21/16 at 12:30; Stop 05/21/16 at 12:31; Status DC Vancomycin HCl 1 each 1 each PRN DAILY PRN MC SEE COMMENTS Last administered on 05/22/16 09:01; Start 05/21/16 at 12:30; Stop 05/22/16 at 09:35; Status DC Ceftriaxone Sodium 50 ml @ 100 mls/hr 1X ONCE IV Last administered on 12:37; Start 05/21/16 at 12:30; Stop 05/21/16 at 12:59; Status DC Vancomycin HCl/ Sodium Chloride (Iv Sodium Chloride 0.9% 500ml Bag) 500 ml @ 250 mls/hr 1X ONCE IV Last administered on 05/21/16 13:12; Start 05/21/16 at 13:00; Stop 05/21/16 at 14:59; Status DC Ondansetron HCl (Zofran) 4 mg PRN Q8HRS PRN IV NAUSEA/VOMITING; Start 05/21/16 at 13:15; Stop 05/22/16 at 13:14; Status DC Morphine Sulfate 2 mg 2 mg PRN Q2HR PRN IV PAIN; Start 05/21/16 at 13:15; Stop 05/22/16 at 13:14; Status DC Sodium Chloride (Iv Sodium Chloride 0.9% 1000ml Bag) 1,000 ml @ 125 mls/hr Q8H IV Last administered on 05/21/16 15:15; Start 05/21/16 at 13:04; Stop at 21:52; Status DC Acetaminophen 650 mg 650 mg PRN Q4HRS PRN PO FEVER Last administered on 00:44; Start 05/21/16 at 13:15; Stop 05/22/16 at 13:14; Status DC Vancomycin HCl/ Sodium Chloride (Iv Sodium Chloride 0.9% 500ml Bag) 500 ml @ 250 mls/hr Q24H IV ; Start 05/22/16 at 13:00; Stop 05/22/16 at 13:00; Status DC Vancomycin HCl 1 each 1 each 1X ONCE MC ; Start 05/23/16 at 12:30; Stop at 12:30; Status DC Potassium Chloride/Sodium Chloride (Iv Sodium Chloride 0.45%) 1,005 ml @ 75 mls /hr [id number] IV Last administered on 05/22/16 09:24; Start 05/21/16 at 20:00 Insulin Aspart (Novolog) 0-5 UNITS TIDWMEALS SQ ; Start 05/22/16 at 08:00 Dextrose 12.5 gm 12.5 gm PRN Q15MIN PRN IV SEE COMMENTS; Start 05/21/16 at 20: 00 Ceftriaxone Sodium/Sodium Chloride (Rocephin/Iv Sodium Chloride 0.9% 50ml) 50 ml @ 100 mls/hr Q24H IV ; Start 05/22/16 at 11:00; Stop 05/22/16 at 11:00; Status DC Acetaminophen (Tylenol) 650 mg PRN Q6HRS PRN PO MILD PAIN / TEMP; Start at 09:15 Ondansetron HCl (Zofran) 4 mg PRN Q6HRS PRN IV NAUSEA/VOMITING; Start 05/22/16 at 09:15 Pantoprazole Sodium (Protonix) 40 mg DAILYAC PO Last administered on 05/22/16 10:21; Start 05/22/16 at 09:30 Heparin Sodium (Porcine) 5000 unit 5,000 unit Q8HRS SQ ; Start 05/22/16 at 14:00 Piperacillin Sod/ Tazobactam Sod/ Sodium Chloride (Zosyn/Iv Sodium Chloride 0.9 % 50ml) 50 ml @ 100 mls/hr Q6HRS IV Last administered on 05/22/16 10:21; Start 05/22/16 at 10:00 Iohexol (Omnipaque 240 Mg/ml) 30 ml 1X ONCE PO Last administered on 05/22/16 11:45; Start 05/22/16 at 11:45; Stop 05/22/16 at 11:46; Status DC Info (Do NOT chart on this entry -- for MONITORING) 1 each PRN DAILY PRN MC SEE COMMENTS; Start 05/22/16 at 11:45; Stop 05/24/16 at 11:44 Vitals/I & O Vital Sign - Last 24 Hours 05/21/16 05/21/16 05/21/16 05/21/16 13:53 14:35 15:58 19:35 Temp 97.7 97.7 Pulse 96 93 Resp 16 B/P 79/48 111/65 Pulse Ox 95 96 O2 Delivery Room Air Room Air Room Air Room Air 05/21/16 05/21/16 05/22/16 05/22/16 19:59 22:09 03:21 07:40 Temp 99.3 99.2 99.2 100.3 99.3 99.2 99.2 100.3 Pulse 93 98 85 85 Resp 18 16 16 18 B/P 136/72 104/61 108/56 129/54 Pulse Ox 97 92 98 94 O2 Delivery Room Air Room Air Room Air Room Air 3/20/17 3/20/17 07:42 10:47 Temp 98.5 98.5 Pulse 84 Resp 18 B/P 106/49 Pulse Ox 97 O2 Delivery Room Air Room Air Intake and Output 05/21/16 05/21/16 05/22/16 15:00 23:00 07:00 Intake Total 1050 ml 1000 ml Output Total 0 ml 250 ml Balance 1050 ml 1000 ml -250 ml CHRISTINA LUEVANO MD May 22, 2016 13:43
--- NOTE | 2016-05-22 14:33 | RAD ---
Indication sepsis. Assess for occult infection. Axial images through the abdomen were obtained. The pelvis was not imaged. Oral contrast was administered. IV contrast was not. No prior CT imaging of the abdomen or pelvis is available. The lung bases are clear. There is a trace amount of pericardial fluid. No significant finding is seen associated with the liver. The gallbladder is grossly normal. There is mild splenomegaly. The pancreas adrenal glands and kidneys appear unremarkable. A focal mass inflammatory process or definite acute finding within the abdomen is not seen. IMPRESSION: No acute finding. Mild enlargement of the spleen PQRS Compliance Statement: One or more of the following individualized dose reduction techniques were utilized for this examination: 1. Automated exposure control 2. Adjustment of the mA and/or kV according to patient size 3. Use of iterative reconstruction technique
[2016-05-22] MEDS: HEPARIN PF for SUB-Q USE 5,000 UNIT/0.5 ML VIAL. SQ SCH ×2 (14:44→22:17)
[2016-05-22 15:20] VITALS: BP 113/63
[2016-05-22 18:40] VITALS: BP 114/63
[2016-05-22 23:29] VITALS: BP 125/78
--- NOTE | 2016-05-23 00:12 | CONS ---
DATE OF CONSULTATION: 05/22/2016 REQUESTING PHYSICIAN: Dr. Odell. REASON FOR CONSULTATION: Blood culture positive. HISTORY OF PRESENT ILLNESS: This is a 70-year-old gentleman who was evidently found in his house, he was lying in bed with his own stool. The patient had change in mental status. The patient had weakness. The patient says he has not been feeling well for about a month or so, off and on, but last 2-3 days he was really sick. The patient was admitted. The patient evaluated. He had a troponin leak. He did have a fever. Blood culture is positive with gram-negative obdulia. The patient also has acute renal failure. The patient has received Rocephin and then vancomycin and I changed to now Zosyn. The patient's blood pressure is stable. The patient is alert, awake, able to communicate. Denies any nausea, vomiting, diarrhea. Denies any chest pain, shortness of breath, abdominal pain, fever, chills or headache right now. PAST MEDICAL HISTORY: No significant past medical history. The patient says he goes to see regular doctor, but he is not a reliable historian at this stage. SOCIAL HISTORY: Negative for smoking, alcohol, illicit drug use. PAST SURGICAL HISTORY: No surgical history. No medications at home. CURRENT MEDICATIONS: Reviewed. REVIEW OF SYSTEMS: As per HPI, all other systems reviewed are negative. PHYSICAL EXAMINATION: GENERAL: Alert, oriented gentleman, not in distress. VITAL SIGNS: Temperature 98.5 with a T-max 100.3. Rest of the vital signs are stable. HEENT: NAD. NECK: Supple, no JVP, no lymphadenopathy. LUNGS: Clear. HEART: S1, S2 regular. ABDOMEN: Benign. EXTREMITIES: No edema, cyanosis. SKIN: Unremarkable. NEUROLOGIC: The patient neurologically does move all the extremities, and able to communicate. LABORATORY DATA: White count is normal, platelets are 117,000. BUN of 37, creatinine 1.8, which is both improving. Troponin is 0.542. Urinalysis 5-10 wbc's. Influenza screen negative. Blood culture is positive with gram-negative obdulia. Chest x-ray is not showing any acute infiltrate. CT of the sinuses unremarkable, other than mild chronic sinusitis. IMPRESSION: 1. Gram-negative obdulia bacteremia with sepsis. 2. Encephalopathy. 3. Acute renal failure. 4. Troponin leak. 5. Weakness. RECOMMENDATIONS: I started Zosyn. Get CT of the abdomen without contrast. We will check the culture and adjust as more information is available. Supportive care, and we will continue to follow. The patient's last colonoscopy was a long time ago, he says. We will see what the CT shows, and we will further decide where this gram-negative obdulia is coming from. Thank you very much, Dr. Odell, for giving me the opportunity to participate in this patient's care. CHUN CRUZ MD DR: EM/celestine JOB#: [id number] / [id number]
[2016-05-23] MEDS: PIPERACILLIN/TAZOBACTAM 3.375 GM in IV NORMAL SALINE 50ML 50 ML IV SCH ×5 (00:41→23:50)
[2016-05-23] MEDS: POTASSIUM CHLORIDE 10 MEQ in IV 1/2 NORMAL SALINE 1,000 ML IV SCH ×2 (00:41→06:34)
[2016-05-23 03:10] VITALS: BP 129/79
[2016-05-23 04:41] LABS: BASO % 1 % (0-3); EOS % 4 % (0-3); HEMATOCRIT 33.8 % (39.0-53.0); HEMOGLOBIN 11.6 g/dL (13.0-17.5); LYMPH # 0.6 x10^3/uL (1.0-4.8); LYMPH % 15 % (24-48); MEAN CORPUSCULAR HEMOGLOBIN 30 pg (25-35); MEAN CORPUSCULAR HGB CONC 34 g/dL (31-37); MEAN CORPUSCULAR VOLUME 86 fL (79-100); MONO % 11 % (0-9); NEUT % 70 % (31-73); PLATELET COUNT 105 x10^3/uL (140-400); RED BLOOD COUNT 3.91 x10^6/uL (4.30-5.70); RED CELL DISTRIBUTION WIDTH 14.4 % (11.5-14.5); WHITE BLOOD COUNT 3.9 x10^3/uL (4.0-11.0)
[2016-05-23 04:51] LABS: CALCIUM 8.4 mg/dL (8.5-10.1); CREATININE 1.4 mg/dL (0.7-1.3); GFR 50.2; POTASSIUM 4.2 mmol/L (3.5-5.1)
[2016-05-23] MEDS: HEPARIN PF for SUB-Q USE 5,000 UNIT/0.5 ML VIAL. SQ SCH ×3 (05:49→21:49)
[2016-05-23 07:00] VITALS: BP 133/74
[2016-05-23] MEDS: INSULIN ASPART 300 UNITS/3 ML INSULN.PEN SQ SCH ×3 (08:00→16:52)
[2016-05-23] MEDS: PANTOPRAZOLE 40 MG TABLET. PO SCH (08:58)
[2016-05-23 11:00] VITALS: BP 130/78
--- NOTE | 2016-05-23 11:12 | PDOC ---
Infectious Disease Note Subjective Subjective feeling good, up and about, no complaints ROS ROS GEN: Denies fevers, chills, sweats HEENT: Denies blurred vision, sore throat CV: Denies chest pain RESP: Denies shortness of air, cough GI: Denies n/v/d NEURO: Denies confusion, dizziness MSK: Denies weakness, joint pain/swelling Vital Sign Vital Signs Vital Signs Date Time Temp Pulse Resp B/P Pulse Ox O2 Delivery O2 Flow Rate FiO2 05/23/16 08:00 Room Air 05/23/16 07:00 97.9 68 18 133/74 97 97.9 Physical Exam PHYSICAL EXAM GENERAL: NAD, Alert HEENT: PERRL, OC/OP NECK: Supple, no JVD, no LN LUNGS: Clear HEART: S1S2, no gallop, no murmur ABD: Soft, NT, no organomegaly, no rebound EXT: No edema, no cyanosis 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: Alert, oriented x 3, no focal neurologic deficit SKIN: No rash IV: ok Labs Lab Laboratory Tests Test 05/22/16 11:14 05/22/16 16:04 05/22/16 20:23 05/23/16 04:00 Glucose (Fingerstick) 182mg/dL (70-99) 130mg/dL (70-99) 126mg/dL (70-99) White Blood Count 3.9x10^3/uL (4.0-11.0) Red Blood Count 3.91x10^6/uL (4.30-5.70) Hemoglobin 11.6g/dL (13.0-17.5) Hematocrit 33.8% (39.0-53.0) Mean Corpuscular Volume 86fL (79-100) Mean Corpuscular Hemoglobin 30pg (25-35) Mean Corpuscular Hemoglobin Concent 34g/dL (31-37) Red Cell Distribution Width 14.4% (11.5-14.5) Platelet Count 105x10^3/uL (140-400) Neutrophils (%) (Auto) 70% (31-73) Lymphocytes (%) (Auto) 15% (24-48) Monocytes (%) (Auto) 11% (0-9) Eosinophils (%) (Auto) 4% (0-3) Basophils (%) (Auto) 1% (0-3) Neutrophils # (Auto) 2.7x10^3uL (1.8-7.7) Lymphocytes # (Auto) 0.6x10^3/uL (1.0-4.8) Monocytes # (Auto) 0.4x10^3/uL (0.0-1.1) Eosinophils # (Auto) 0.2x10^3/uL (0.0-0.7) Basophils # (Auto) 0.0x10^3/uL (0.0-0.2) Sodium Level 139mmol/L (136-145) Potassium Level 4.2mmol/L (3.5-5.1) Chloride Level 104mmol/L (98-107) Carbon Dioxide Level 26mmol/L (21-32) Anion Gap 9 (6-14) Blood Urea Nitrogen 29mg/dL (8-26) Creatinine 1.4mg/dL (0.7-1.3) Estimated GFR (Cockcroft-Gault) 50.2 Glucose Level 134mg/dL (70-99) Calcium Level 8.4mg/dL (8.5-10.1) Micro BLOOD CULTURE PRL Preliminary Preliminary report BLD CULT RESULT 1 Preliminary Escherichia coli Presumptive identification Beta lactamase positive. Recovered from aerobic and anaerobic bottles. Performed at: [address] [id number] Test Cell Technician: Jenny Boyd MD, Phone: [phone] Objective Assessment G neg obdulia sepsis/ E coli Weakness Encephalopathy ARF Troponin leak Plan Plan of Care zosyn check culture and adjust hopefully d/c tomorrow d/w dr Abbott pt will need colonoscopy later out pt CHUN CRUZ MD May 23, 2016 11:12
--- NOTE | 2016-05-23 13:01 | PDOC ---
PROGRESS NOTES Chief Complaint Chief Complaint G neg obdulia bacteremia sepsis generalized Weakness metabolic Encephalopathy 2/2 sepsis ARF. vasomotor Troponin leak 2/2 sepsis likely pancytopenia, 2/2 sepsis and dilutional with IVF plan: 1. fu with card, SIGned off 2. get ID consult, on zosyn now, fu ucx, bcx 3. abd CT non remarkable 4. head/facial CT given h/o chronic sinusitis, neg 5. dvt, gi ppx ptot dc ivf labs tmr daughter require to check cdiff given diarrhea at home. no bm in hosp dc tmr hopefully History of Present Illness History of Present Illness hard hearing weak is better mild confused yesterday, much better today denies cough, + urine incontinence, denies abd pain, or dysuria, + fever 05/22 Vitals Vitals Vital Signs Date Time Temp Pulse Resp B/P Pulse Ox O2 Delivery O2 Flow Rate FiO2 05/23/16 11:00 98.3 73 18 130/78 97 Room Air 98.3 Physical Exam General: Alert, Oriented X3, Cooperative Heart: Regular rate, Normal S1, Normal S2 Lungs: Clear Abdomen: Normal bowel sounds, Soft Extremities: No clubbing, No cyanosis Labs LABS Laboratory Tests Test 05/22/16 16:04 05/22/16 20:23 05/23/16 04:00 05/23/16 12:02 Glucose (Fingerstick) 130mg/dL (70-99) 126mg/dL (70-99) 175mg/dL (70-99) White Blood Count 3.9x10^3/uL (4.0-11.0) Red Blood Count 3.91x10^6/uL (4.30-5.70) Hemoglobin 11.6g/dL (13.0-17.5) Hematocrit 33.8% (39.0-53.0) Mean Corpuscular Volume 86fL (79-100) Mean Corpuscular Hemoglobin 30pg (25-35) Mean Corpuscular Hemoglobin Concent 34g/dL (31-37) Red Cell Distribution Width 14.4% (11.5-14.5) Platelet Count 105x10^3/uL (140-400) Neutrophils (%) (Auto) 70% (31-73) Lymphocytes (%) (Auto) 15% (24-48) Monocytes (%) (Auto) 11% (0-9) Eosinophils (%) (Auto) 4% (0-3) Basophils (%) (Auto) 1% (0-3) Neutrophils # (Auto) 2.7x10^3uL (1.8-7.7) Lymphocytes # (Auto) 0.6x10^3/uL (1.0-4.8) Monocytes # (Auto) 0.4x10^3/uL (0.0-1.1) Eosinophils # (Auto) 0.2x10^3/uL (0.0-0.7) Basophils # (Auto) 0.0x10^3/uL (0.0-0.2) Sodium Level 139mmol/L (136-145) Potassium Level 4.2mmol/L (3.5-5.1) Chloride Level 104mmol/L (98-107) Carbon Dioxide Level 26mmol/L (21-32) Anion Gap 9 (6-14) Blood Urea Nitrogen 29mg/dL (8-26) Creatinine 1.4mg/dL (0.7-1.3) Estimated GFR (Cockcroft-Gault) 50.2 Glucose Level 134mg/dL (70-99) Calcium Level 8.4mg/dL (8.5-10.1) Review of Systems Review of Systems no fever, chills, sob or chest pain Assessment and Plan Assessmemt and Plan Problems Medical Problems: (1) Elevated lactic acid level Status: Acute (2) Elevated troponin Status: Acute (3) Malaise Status: Acute Problems: Comment Review of Relevant I have reviewed the following items william (where applicable) has been applied. Labs Laboratory Tests Test 05/21/16 14:10 05/21/16 17:00 05/21/16 20:31 05/21/16 20:34 Lactic Acid Level 1.4mmol/L (0.4-2.0) 1.5mmol/L (0.4-2.0) Troponin I Quantitative 0.418ng/mL (0.000-0.055) Urine Collection Type Unknown Urine Color [place] Urine Clarity Cloudy Urine pH 5.0 Urine Specific [place] 1.025 Urine Protein 100mg/dL (NEG-TRACE) Urine Glucose (UA) Negativemg/dL (NEG) Urine Ketones (Stick) Negativemg/dL (NEG) Urine Blood Large (NEG) Urine Nitrite Negative (NEG) Urine Bilirubin Small (NEG) Urine Urobilinogen Dipstick 1.0mg/dL (0.2 mg/dL) Urine Leukocyte Esterase Small (NEG) Urine RBC Rare/HPF (0-2) Urine WBC 5-10/HPF (0-4) Urine Squamous Epithelial Cells Few/LPF Urine Bacteria Few/HPF (0-FEW) Urine Hyaline Casts Occasional/HPF Urine Mucus Marked/LPF Glucose (Fingerstick) 129mg/dL (70-99) Test 05/21/16 22:55 05/22/16 04:44 05/22/16 07:55 05/22/16 11:14 Troponin I Quantitative 0.542ng/mL (0.000-0.055) White Blood Count 6.4x10^3/uL (4.0-11.0) Red Blood Count 4.32x10^6/uL (4.30-5.70) Hemoglobin 12.7g/dL (13.0-17.5) Hematocrit 37.5% (39.0-53.0) Mean Corpuscular Volume 87fL (79-100) Mean Corpuscular Hemoglobin 29pg (25-35) Mean Corpuscular Hemoglobin Concent 34g/dL (31-37) Red Cell Distribution Width 14.1% (11.5-14.5) Platelet Count 117x10^3/uL (140-400) Neutrophils (%) (Auto) 88% (31-73) Lymphocytes (%) (Auto) 6% (24-48) Monocytes (%) (Auto) 5% (0-9) Eosinophils (%) (Auto) 0% (0-3) Basophils (%) (Auto) 0% (0-3) Neutrophils # (Auto) 5.6x10^3uL (1.8-7.7) Lymphocytes # (Auto) 0.4x10^3/uL (1.0-4.8) Monocytes # (Auto) 0.3x10^3/uL (0.0-1.1) Eosinophils # (Auto) 0.0x10^3/uL (0.0-0.7) Basophils # (Auto) 0.0x10^3/uL (0.0-0.2) Sodium Level 141mmol/L (136-145) Potassium Level 4.2mmol/L (3.5-5.1) Chloride Level 106mmol/L (98-107) Carbon Dioxide Level 25mmol/L (21-32) Anion Gap 10 (6-14) Blood Urea Nitrogen 37mg/dL (8-26) Creatinine 1.8mg/dL (0.7-1.3) Estimated GFR (Cockcroft-Gault) 37.6 Glucose Level 157mg/dL (70-99) Hemoglobin A1c 6.5% (4.8-5.6) Calcium Level 8.2mg/dL (8.5-10.1) Triglycerides Level 150mg/dL (0-150) Cholesterol Level 89mg/dL (0-200) LDL Cholesterol, Calculated 50mg/dL (0-100) VLDL Cholesterol, Calculated 30mg/dL (0-40) HDL Cholesterol 9mg/dL (40-60) Cholesterol/HDL Ratio 9.9 Thyroid Stimulating Hormone (TSH) 0.810uIU/mL (0.358-3.74) Glucose (Fingerstick) 151mg/dL (70-99) 182mg/dL (70-99) Test 05/22/16 16:04 05/22/16 20:23 05/23/16 04:00 05/23/16 12:02 Glucose (Fingerstick) 130mg/dL (70-99) 126mg/dL (70-99) 175mg/dL (70-99) White Blood Count 3.9x10^3/uL (4.0-11.0) Red Blood Count 3.91x10^6/uL (4.30-5.70) Hemoglobin 11.6g/dL (13.0-17.5) Hematocrit 33.8% (39.0-53.0) Mean Corpuscular Volume 86fL (79-100) Mean Corpuscular Hemoglobin 30pg (25-35) Mean Corpuscular Hemoglobin Concent 34g/dL (31-37) Red Cell Distribution Width 14.4% (11.5-14.5) Platelet Count 105x10^3/uL (140-400) Neutrophils (%) (Auto) 70% (31-73) Lymphocytes (%) (Auto) 15% (24-48) Monocytes (%) (Auto) 11% (0-9) Eosinophils (%) (Auto) 4% (0-3) Basophils (%) (Auto) 1% (0-3) Neutrophils # (Auto) 2.7x10^3uL (1.8-7.7) Lymphocytes # (Auto) 0.6x10^3/uL (1.0-4.8) Monocytes # (Auto) 0.4x10^3/uL (0.0-1.1) Eosinophils # (Auto) 0.2x10^3/uL (0.0-0.7) Basophils # (Auto) 0.0x10^3/uL (0.0-0.2) Sodium Level 139mmol/L (136-145) Potassium Level 4.2mmol/L (3.5-5.1) Chloride Level 104mmol/L (98-107) Carbon Dioxide Level 26mmol/L (21-32) Anion Gap 9 (6-14) Blood Urea Nitrogen 29mg/dL (8-26) Creatinine 1.4mg/dL (0.7-1.3) Estimated GFR (Cockcroft-Gault) 50.2 Glucose Level 134mg/dL (70-99) Calcium Level 8.4mg/dL (8.5-10.1) Laboratory Tests Test 05/22/16 16:04 05/22/16 20:23 05/23/16 04:00 05/23/16 12:02 Glucose (Fingerstick) 130mg/dL (70-99) 126mg/dL (70-99) 175mg/dL (70-99) White Blood Count 3.9x10^3/uL (4.0-11.0) Red Blood Count 3.91x10^6/uL (4.30-5.70) Hemoglobin 11.6g/dL (13.0-17.5) Hematocrit 33.8% (39.0-53.0) Mean Corpuscular Volume 86fL (79-100) Mean Corpuscular Hemoglobin 30pg (25-35) Mean Corpuscular Hemoglobin Concent 34g/dL (31-37) Red Cell Distribution Width 14.4% (11.5-14.5) Platelet Count 105x10^3/uL (140-400) Neutrophils (%) (Auto) 70% (31-73) Lymphocytes (%) (Auto) 15% (24-48) Monocytes (%) (Auto) 11% (0-9) Eosinophils (%) (Auto) 4% (0-3) Basophils (%) (Auto) 1% (0-3) Neutrophils # (Auto) 2.7x10^3uL (1.8-7.7) Lymphocytes # (Auto) 0.6x10^3/uL (1.0-4.8) Monocytes # (Auto) 0.4x10^3/uL (0.0-1.1) Eosinophils # (Auto) 0.2x10^3/uL (0.0-0.7) Basophils # (Auto) 0.0x10^3/uL (0.0-0.2) Sodium Level 139mmol/L (136-145) Potassium Level 4.2mmol/L (3.5-5.1) Chloride Level 104mmol/L (98-107) Carbon Dioxide Level 26mmol/L (21-32) Anion Gap 9 (6-14) Blood Urea Nitrogen 29mg/dL (8-26) Creatinine 1.4mg/dL (0.7-1.3) Estimated GFR (Cockcroft-Gault) 50.2 Glucose Level 134mg/dL (70-99) Calcium Level 8.4mg/dL (8.5-10.1) Microbiology 05/21/16 Blood Culture - Preliminary, Resulted 05/21/16 Blood Culture Result 1 (AQUILES) - Preliminary, Resulted 05/21/16 Urine Culture - Final, Complete 05/21/16 Urine Culture Result 1 (AQUILES) - Final, Complete Medications Current Medications Ondansetron HCl (Zofran) 4 mg 1X ONCE IV Last administered on 05/21/16 11:52 ; Start 05/21/16 at 11:30; Stop 05/21/16 at 11:33; Status DC Acetaminophen 1000 mg 1,000 mg 1X ONCE PO Last administered on 05/21/16 11:54 ; Start 05/21/16 at 11:30; Stop 05/21/16 at 11:33; Status DC Sodium Chloride (Iv Sodium Chloride 0.9% 1000ml Bag) 1,000 ml @ 1,000 mls/hr 1X ONCE IV Last administered on 05/21/16 12:38; Start 05/21/16 at 12:15; Stop 05/21/16 at 13:14; Status DC Aspirin (Children'S Aspirin) 324 mg 1X ONCE PO Last administered on 05/21/16 12:37; Start 05/21/16 at 12:30; Stop 05/21/16 at 12:31; Status DC Vancomycin HCl 1 each 1 each PRN DAILY PRN MC SEE COMMENTS Last administered on 05/22/16 09:01; Start 05/21/16 at 12:30; Stop 05/22/16 at 09:35; Status DC Ceftriaxone Sodium 50 ml @ 100 mls/hr 1X ONCE IV Last administered on 12:37; Start 05/21/16 at 12:30; Stop 05/21/16 at 12:59; Status DC Vancomycin HCl/ Sodium Chloride (Iv Sodium Chloride 0.9% 500ml Bag) 500 ml @ 250 mls/hr 1X ONCE IV Last administered on 05/21/16 13:12; Start 05/21/16 at 13:00; Stop 05/21/16 at 14:59; Status DC Ondansetron HCl (Zofran) 4 mg PRN Q8HRS PRN IV NAUSEA/VOMITING; Start 05/21/16 at 13:15; Stop 05/22/16 at 13:14; Status DC Morphine Sulfate 2 mg 2 mg PRN Q2HR PRN IV PAIN; Start 05/21/16 at 13:15; Stop 05/22/16 at 13:14; Status DC Sodium Chloride (Iv Sodium Chloride 0.9% 1000ml Bag) 1,000 ml @ 125 mls/hr Q8H IV Last administered on 05/21/16 15:15; Start 05/21/16 at 13:04; Stop at 21:52; Status DC Acetaminophen 650 mg 650 mg PRN Q4HRS PRN PO FEVER Last administered on 00:44; Start 05/21/16 at 13:15; Stop 05/22/16 at 13:14; Status DC Vancomycin HCl/ Sodium Chloride (Iv Sodium Chloride 0.9% 500ml Bag) 500 ml @ 250 mls/hr Q24H IV ; Start 05/22/16 at 13:00; Stop 05/22/16 at 13:00; Status DC Vancomycin HCl 1 each 1 each 1X ONCE MC ; Start 05/23/16 at 12:30; Stop at 12:30; Status DC Potassium Chloride/Sodium Chloride (Iv Sodium Chloride 0.45%) 1,005 ml @ 100 mls/hr Q10H3M IV Last administered on 05/23/16 00:41; Start 05/21/16 at 20:00 Insulin Aspart (Novolog) 0-5 UNITS TIDWMEALS SQ ; Start 05/22/16 at 08:00 Dextrose 12.5 gm 12.5 gm PRN Q15MIN PRN IV SEE COMMENTS; Start 05/21/16 at 20: 00 Ceftriaxone Sodium/Sodium Chloride (Rocephin/Iv Sodium Chloride 0.9% 50ml) 50 ml @ 100 mls/hr Q24H IV ; Start 05/22/16 at 11:00; Stop 05/22/16 at 11:00; Status DC Acetaminophen (Tylenol) 650 mg PRN Q6HRS PRN PO MILD PAIN / TEMP Last administered on 05/22/16 20:14; Start 05/22/16 at 09:15 Ondansetron HCl (Zofran) 4 mg PRN Q6HRS PRN IV NAUSEA/VOMITING; Start 05/22/16 at 09:15 Pantoprazole Sodium (Protonix) 40 mg DAILYAC PO Last administered on 05/23/16 08:58; Start 05/22/16 at 09:30 Heparin Sodium (Porcine) 5000 unit 5,000 unit Q8HRS SQ Last administered on 05:49; Start 05/22/16 at 14:00 Piperacillin Sod/ Tazobactam Sod/ Sodium Chloride (Zosyn/Iv Sodium Chloride 0.9 % 50ml) 50 ml @ 100 mls/hr Q6HRS IV Last administered on 05/23/16 12:15; Start 05/22/16 at 10:00 Iohexol (Omnipaque 240 Mg/ml) 30 ml 1X ONCE PO Last administered on 05/22/16 11:45; Start 05/22/16 at 11:45; Stop 05/22/16 at 11:46; Status DC Info (Do NOT chart on this entry -- for MONITORING) 1 each PRN DAILY PRN MC SEE COMMENTS; Start 05/22/16 at 11:45; Stop 05/24/16 at 11:44 Vitals/I & O Vital Sign - Last 24 Hours 05/22/16 05/22/16 05/22/16 05/22/16 15:20 18:40 20:00 23:29 Temp 98.9 98.9 96.6 98.9 98.9 96.6 Pulse 79 75 71 Resp B/P 113/63 114/63 125/78 Pulse Ox 95 90 90 O2 Delivery Room Air Room Air Room Air Room Air 05/23/16 05/23/16 05/23/16 05/23/16 03:10 07:00 08:00 11:00 Temp 97.8 97.9 98.3 97.8 97.9 98.3 Pulse 71 68 73 Resp B/P 129/79 133/74 130/78 Pulse Ox 97 97 97 O2 Delivery Room Air Room Air Room Air Room Air Intake and Output 05/22/16 05/22/16 05/23/16 15:00 23:00 07:00 Intake Total 690 ml 1150 ml Output Total 1220 ml Balance 690 ml -70 ml CHRISTINA LUEVANO MD May 23, 2016 13:01
[2016-05-23 15:00] VITALS: BP 128/76
[2016-05-23 19:52] VITALS: BP 119/77
[2016-05-23 23:35] VITALS: BP 145/76
[2016-05-24 03:50] VITALS: BP 138/84
[2016-05-24] MEDS: PIPERACILLIN/TAZOBACTAM 3.375 GM in IV NORMAL SALINE 50ML 50 ML IV SCH (05:55)
[2016-05-24] MEDS: HEPARIN PF for SUB-Q USE 5,000 UNIT/0.5 ML VIAL. SQ SCH ×3 (06:03→21:38)
[2016-05-24 07:00] VITALS: BP 130/67
[2016-05-24] MEDS: INSULIN ASPART 300 UNITS/3 ML INSULN.PEN SQ SCH ×3 (08:00→17:00)
[2016-05-24] MEDS: PANTOPRAZOLE 40 MG TABLET. PO SCH (08:38)
[2016-05-24 09:04] LABS: BASO % 1 % (0-3); EOS % 4 % (0-3); HEMATOCRIT 39.5 % (39.0-53.0); HEMOGLOBIN 13.3 g/dL (13.0-17.5); LYMPH # 0.6 x10^3/uL (1.0-4.8); LYMPH % 15 % (24-48); MEAN CORPUSCULAR HEMOGLOBIN 29 pg (25-35); MEAN CORPUSCULAR HGB CONC 34 g/dL (31-37); MEAN CORPUSCULAR VOLUME 87 fL (79-100); MONO % 9 % (0-9); NEUT % 72 % (31-73); PLATELET COUNT 148 x10^3/uL (140-400); RED BLOOD COUNT 4.53 x10^6/uL (4.30-5.70); RED CELL DISTRIBUTION WIDTH 13.9 % (11.5-14.5)
[2016-05-24 09:24] LABS: CALCIUM 8.4 mg/dL (8.5-10.1); CREATININE 1.3 mg/dL (0.7-1.3); GFR 54.7
[2016-05-24 11:00] VITALS: BP 147/87
--- NOTE | 2016-05-24 11:02 | PDOC ---
Infectious Disease Note Subjective Subjective feeling good, up and about, no complaints ROS ROS GEN: Denies fevers, chills, sweats HEENT: Denies blurred vision, sore throat CV: Denies chest pain RESP: Denies shortness of air, cough GI: Denies n/v/d NEURO: Denies confusion, dizziness MSK: Denies weakness, joint pain/swelling Vital Sign Vital Signs Vital Signs Date Time Temp Pulse Resp B/P Pulse Ox O2 Delivery O2 Flow Rate FiO2 05/24/16 08:00 Room Air 05/24/16 07:00 97.9 71 20 130/67 98 97.9 Physical Exam PHYSICAL EXAM GENERAL: NAD, Alert HEENT: PERRL, OC/OP NECK: Supple, no JVD, no LN LUNGS: Clear HEART: S1S2, no gallop, no murmur ABD: Soft, NT, no organomegaly, no rebound EXT: No edema, no cyanosis 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, oriented x 3, no focal neurologic deficit SKIN: No rash IV: ok Labs Lab Laboratory Tests Test 05/23/16 12:02 05/23/16 16:19 05/23/16 21:01 05/24/16 07:11 Glucose (Fingerstick) 175mg/dL (70-99) 148mg/dL (70-99) 143mg/dL (70-99) 142mg/dL (70-99) Test 05/24/16 08:30 White Blood Count 4.0x10^3/uL (4.0-11.0) Red Blood Count 4.53x10^6/uL (4.30-5.70) Hemoglobin 13.3g/dL (13.0-17.5) Hematocrit 39.5% (39.0-53.0) Mean Corpuscular Volume 87fL (79-100) Mean Corpuscular Hemoglobin 29pg (25-35) Mean Corpuscular Hemoglobin Concent 34g/dL (31-37) Red Cell Distribution Width 13.9% (11.5-14.5) Platelet Count 148x10^3/uL (140-400) Neutrophils (%) (Auto) 72% (31-73) Lymphocytes (%) (Auto) 15% (24-48) Monocytes (%) (Auto) 9% (0-9) Eosinophils (%) (Auto) 4% (0-3) Basophils (%) (Auto) 1% (0-3) Neutrophils # (Auto) 2.9x10^3uL (1.8-7.7) Lymphocytes # (Auto) 0.6x10^3/uL (1.0-4.8) Monocytes # (Auto) 0.4x10^3/uL (0.0-1.1) Eosinophils # (Auto) 0.1x10^3/uL (0.0-0.7) Basophils # (Auto) 0.0x10^3/uL (0.0-0.2) Sodium Level 143mmol/L (136-145) Potassium Level 4.0mmol/L (3.5-5.1) Chloride Level 105mmol/L (98-107) Carbon Dioxide Level 29mmol/L (21-32) Anion Gap 9 (6-14) Blood Urea Nitrogen 22mg/dL (8-26) Creatinine 1.3mg/dL (0.7-1.3) Estimated GFR (Cockcroft-Gault) 54.7 Glucose Level 154mg/dL (70-99) Calcium Level 8.4mg/dL (8.5-10.1) Micro BLOOD CULTURE PRL Preliminary Preliminary report BLD CULT RESULT 1 Preliminary Escherichia coli Presumptive identification Beta lactamase positive. Recovered from aerobic and anaerobic bottles. Performed at: [address] [id number] Certified Adapted Physical Educator: Jenny Boyd MD, Phone: [phone] Objective Assessment G neg obdulia sepsis/ E coli Weakness Encephalopathy ARF Troponin leak Plan Plan of Care zosyn,, change to po cipro d/w dr Abbott pt will need colonoscopy later out pt,, this was d/w pt in detail since no obvious source found and unable to do ct with contrast d/c CHUN Walters MD May 24, 2016 11:02
[2016-05-24] MEDS ORDERED: CIPR250T30 PO ×2 (12:31→12:33)
--- NOTE | 2016-05-24 12:35 | PDOC3 ---
Discharge Summary [facility] Date of Admission: May 21, 2016 Discharge Date: May 24, 2016 Admitting Diagnosis G neg obdulia bacteremia sepsis generalized Weakness metabolic Encephalopathy 2/2 sepsis ARF. vasomotor Troponin leak 2/2 sepsis likely pancytopenia, 2/2 sepsis and dilutional with IVF ckd2 Problems: Final Diagnosis CONSULTS id Brief Hospital Course Mr. Bauer is a 70 old M, comes here for AMS, was found weak at home, with diarrhea. pt has been coughing a little bit for 1 week, with chronic sinusitis, ct neg here. was found + bcx, with Ecoli, al sensitive, ABD ct NEG. ERICA, likely 2/2 dehydration, Cr 1.3 now dc home with cipro for another 7days, got zosyn here. may need colonoscopy, fu with pcp dc time 35min General: Alert, Oriented X3, Cooperative Heart: Regular rate, Normal S1, Normal S2 Lungs: Clear Abdomen: Normal bowel sounds, Soft Extremities: No clubbing, No cyanosis Problems: Disposition home CONDITION AT DISCHARGE: Improved Diet regular Follow Up pcp next week CHRISTINA LUEVANO MD May 24, 2016 12:35
[2016-05-24] MEDS: CIPROFLOXACIN HCL 250 MG TABLET PO SCH ×2 (12:52→21:38)
[2016-05-24] MEDS ORDERED: ONDANSETRON ODT 4 MG TAB.RAPDIS PO PRN (19:30)
[2016-05-24 19:44] VITALS: BP 150/73
[2016-05-24] MEDS: ACETAMINOPHEN 325 MG TABLET. PO PRN (19:45)
[2016-05-25] MEDS: HEPARIN PF for SUB-Q USE 5,000 UNIT/0.5 ML VIAL. SQ SCH (05:54)
[2016-05-25 07:00] VITALS: BP 148/90
[2016-05-25] MEDS: PANTOPRAZOLE 40 MG TABLET. PO SCH (07:30)
[2016-05-25] MEDS: INSULIN ASPART 300 UNITS/3 ML INSULN.PEN SQ SCH (08:00)
[2016-05-25] MEDS: CIPROFLOXACIN HCL 250 MG TABLET PO SCH (09:01)
--- NOTE | 2016-05-25 09:45 | PDOC ---
Infectious Disease Note Subjective Subjective feeling good, up and about, no complaints ROS ROS GEN: Denies fevers, chills, sweats HEENT: Denies blurred vision, sore throat CV: Denies chest pain RESP: Denies shortness of air, cough GI: Denies n/v/d NEURO: Denies confusion, dizziness MSK: Denies weakness, joint pain/swelling Vital Sign Vital Signs Vital Signs Date Time Temp Pulse Resp B/P Pulse Ox O2 Delivery O2 Flow Rate FiO2 05/25/16 08:00 Room Air 05/25/16 07:00 98.9 67 16 148/90 96 98.9 Physical Exam PHYSICAL EXAM GENERAL: NAD, Alert HEENT: PERRL, OC/OP NECK: Supple, no JVD, no LN LUNGS: Clear HEART: S1S2, no gallop, no murmur ABD: Soft, NT, no organomegaly, no rebound EXT: No edema, no cyanosis 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 Recovered from aerobic and anaerobic bottles. Performed at: [address] [id number] Server Cashier: Jenny Boyd MD, Phone: [phone] Objective Assessment G neg obdulia sepsis/ E coli Weakness Encephalopathy ARF Troponin leak Plan Plan of Care po cipro d/w dr Abbott pt will need colonoscopy later out pt,, this was d/w pt in detail since no obvious source found and unable to do ct with contrast d/c CHUN Walters MD May 25, 2016 09:45
[2016-05-25 11:00] VITALS: BP 157/63
--- NOTE | 2016-05-25 12:37 | PDOC3 ---
Discharge Summary [facility] Date of Admission: May 21, 2016 Discharge Date: May 25, 2016 Admitting Diagnosis G neg obdulia bacteremia sepsis generalized Weakness metabolic Encephalopathy 2/2 sepsis ARF. vasomotor Troponin leak 2/2 sepsis likely pancytopenia, 2/2 sepsis and dilutional with IVF ckd2 Problems: Final Diagnosis CONSULTS id Brief Hospital Course Brief Hospital Course Mr. Bauer is a 70 old M, comes here for AMS, was found weak at home, with diarrhea. pt has been coughing a little bit for 1 week, with chronic sinusitis, ct neg here. was found + bcx, with Ecoli, al sensitive, ABD ct NEG. ERICA, likely 2/2 dehydration, Cr 1.3 now dc home with cipro for another 7days, got zosyn here. may need colonoscopy, fu with pcp pt supposed to leave on 05/24, but had abd pain and nausea later afternoon, 2/2 cipro side effect likely, now feels good. dc time 35min General: Alert, Oriented X3, Cooperative Heart: Regular rate, Normal S1, Normal S2 Lungs: Clear Abdomen: Normal bowel sounds, Soft Extremities: No clubbing, No cyanosis Problems: Disposition home CONDITION AT DISCHARGE: Improved Diet regular Problems: Disposition home CONDITION AT DISCHARGE: Improved Diet regular Scheduled Ciprofloxacin Hcl (Cipro) 500 MG PO BID Follow Up pcp next week CHRISTIAN LUEVANO MD May 25, 2016 12:37
== END 2016-05-25 12:36 | disposition home or self-care (01) | DRG 871 ==
LOC: ER 11:12 → CVICU 13:12 → 2 SOUTH 05-22 12:38 → 6 SOUTH 05-22 18:03
PROVIDERS: ADMIT Internal Medicine Hematology & Oncology; ATTEND Internal Medicine Hematology & Oncology
DX: A41.50 Gram-negative sepsis, unspecified (principal); G93.41 Metabolic encephalopathy; N17.0 Acute kidney failure with tubular necrosis; D61.818 Other pancytopenia; B96.89 Other specified bacterial agents as the cause of diseases classified elsewhere; E11.22 Type 2 diabetes mellitus with diabetic chronic kidney disease; E86.0 Dehydration; N18.2 Chronic kidney disease, stage 2 (mild); R62.7 Adult failure to thrive
CPT/HCPCS: 36415; 70450; 70486; 71010; 74150; 80048; 80053; 80061; 81001; 82550; 82947; 83036; 83605; 83690; 84443; 84484; 85007; 85027; 87040; 87086; 87205; 87804; 93005; 93306; 96365; 96375; 96376; J0690; J1815; J2405; J2543; J3370; J7030; J7040; Q0162; Q9966; 97530; 99285-25

== ENCOUNTER → 2021-04-07 | Outpatient (CLI) | payer MEDICARE ==
[~2021-04-07] MED LIST: CIPR250T30 PO
--- NOTE | 2021-04-07 11:57 | KCIC ---
Left foot AP lateral and oblique views HISTORY: Bunion and foot pain AP lateral oblique views were obtained FINDINGS: There is mild degenerative changes of the metatarsophalangeal and interphalangeal joints with minimal marginal spurring. There is subchondral cyst formation of the left fifth metatarsal head and bunion deformity. There is no lytic destructive changes. 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 No acute findings. Electronically signed by: Shaun Whitehead III, MD (04/07/2021 11:55 AM) [facility]
== END ==
LOC: KCIC 10:53
PROVIDERS: ATTEND Nurse Practitioner
DX: M19.072 Primary osteoarthritis, left ankle and foot (principal); M21.622 Bunionette of left foot
CPT/HCPCS: 73630